=== PATIENT | female | born 1935 | race Caucasian/White ===

== ENCOUNTER 2023-03-21 13:03 | Inpatient (IN) ==
--- OUTSIDE RECORDS SUMMARY | 2023-03-21 13:23 | External Medical Summary ---
Author Name Unknown Address Unknown Organization [id number][facility] [address] [place] [id number] Laboratory Report Ordering Provider Test Date Status RUBIA CRISOSTOMO 03/13/2023 07:39:00 Final Standing order for pt/inr. < br/>Please draw pt/inr every 1 to 4 weeks as requested
Results to [facility]

Warfarin Therapy
INR: 2.0-3.0 conventional anticoagulation
INR: 2.5-3.5 high intensity anticoagulation Observation Date Value Abnormality Reference (Units ) Status PT 03/13/2023 07:39:00 29.6 Above high normal 11 .6-15.2 (seconds) Final INR 03/13/2023 07:39:00 2.8 Above high normal 0. 8-1.2 Final Performing Location [facility] [address] [place] [id number]
--- OUTSIDE RECORDS SUMMARY | 2023-03-21 13:23 | External Medical Summary | Summary of Care ---
Author Name Unknown Organization [facility] Address [address] [facility] [place] [address] Phone [phone] Care Team Providers Care Plisse Machine Operator Helper Name Role Phone Edwin Otto MD Primary Care Provider [phone] Reason for Visit * Reason Comments Dosage Adjustment Via Phone (anticoag Cl inic) Encounter Details Date Type Department Care Team (Latest Contact Info) Description 03/16/2023 6:00 AM [facility] Anticoagulation Pharmacy Call Center [phone] [place] [address] [facility] [address] [facility] [place] [address] History of pulmonary embolus (PE)* Allergies No known active allergiesdocumented as of this encounter (statuses as of 03/16/2023) Medications Medication Sig Dispensed Refills Start Date End Date Status Warfarin Sodium 5 MG Oral Tablet (Martoven)Indications :Deep vein thrombosis (DVT) of lower extremity, unspecified chronicity, unspecified laterality, unspecified vein (HCC),Anticoagulation management encounter,Other pulmonary embolism without acute cor pulmonale, unspecified chronicity (HCC) take half to one tablet by mouth daily as directed by the coumadin clinic 90 Tablet 3 03/31/2022 Active Vitamin D (Cholecalciferol) 25 MCG (1000 UT) Oral TabletIndications:Vit guerin D deficiency 1 daily 100 Tablet 3 07/25/2022 Active Citalopram Hydrobromide 20 MG Oral Tablet (CeleXA)Indications:D epression, unspecified depression type TAKE 1 TABLET BY MOUTH ONCE DAILY 90 Tablet 3 10/02/2022 Active documented as of this encounter (statuses as of 03/16/2023) Active Problems Problem Noted Date Diagnosed Date Other pulmonary embolism without acute cor pulmo nale 07/24/2021 Statin intolerance 03/22/2019 History of pulmonary embolus (PE) 09/01/2018 Kidney disease, chronic, stage III (GFR 30-59 ml /min) 07/28/2017 Overview: Per CKD protocol #1 Vitamin D deficiency 07/10/2017 Age-related osteoporosis wit hout current pathological fracture 09/12/2016 Chronic anticoagulation 03/14/2016 Dyslipidemia, goal LDL below 100 02/14/[address] 03/29/2012 Aortic insufficiency 02/20/2011 Anemia 02/17/2011 Undiagnosed cardiac murmurs 02/17/2011 Overview: 2/6 ANGELINA loudest at aortic area. JOINT PAIN-SHLDER _ L 08/16/2008 ADVANCE DIRECTIVE INFORMATION 11/27/2004 Overview: ,No, Advance Directive brochure offered , patient declined. 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 Right heart strain/distension on CT. Transferred from [facility]. Post knee replacement surgery. Dyslipidemia, goal to be determined 02/13/2009 02/14/2013 Overview: Per Lipid Taxonomy. Osteoporosis 01/13/2005 09/12/2016 Actinic keratosis 02/23/2002 07/10/2017 SUPERFIC PHLEBITIS-LEG 12/19/199707/10 Chest pain 07/10/2017 PURE HYPERCHOLESTEROLEM 12/0 10/2008 Overview: Per Lipid Taxonomy. Back disorder 07/10/2017 documented as of this encounter (statuses as of 03/16/2023) Immunizations Name Administration Dates Next Due COVID-19 mRNA, LNP-s, No Pre serve, 2-Dose Series (Pfizer) 06/27/2020,06/06/2020 Pneumococcal Conjugate Vacc, 13 Valent (Prevnar) 09/12/2016 Seasonal Influenza, PF, 6 M & above, IM , (FluLaval or Fluzone) 12/02/2019,12/23/2018,12/14/2017,2016 Seasonal Influenza, Quadriva lent Hd (Fluzone Hd) 01/24/2022,11/28/2020 Seasonal Influenza, Quadriva lent, No Preserve, IM 01/02/2016 Seasonal Influenza, Split, I IV3, With Preserve, Inj 11/14/2014,12/27/2013,12/02/2012,2011,12/19/2010,11/30/2009,11/30/2008,1 ,12/14/2006,12/17/2005 TDAP (age 10 and older)(Boostrix) 10/31/2014 Varicella Zoster Vaccine (Adult) 01/17/2014 documented as of this encounter Social History Tobacco Use Types Packs/Day Years Used Date Smoking Tobacco: Never Smokeless Tobacco: Never Alcohol Use Standard Drinks/Week Comments No 0 (1 standard drink = 0.6 oz pur e alcohol) PHQ-2 Answer Date Recorded PHQ Adult Total Score 0 03/28/2021 Hunger Vital Sign Answer Date Recorded Worried About Running Out of Food in the Last Ye ar Never true 09/01/2018 Ran Out of Food in the Last Year Never true 09/01/2018 Sex and Gender Information Value Date Recorded Sex Assigned at Female 09/01/2018 2:21 PM EDT Gender Identity Female 09/01/2018 2:21 PM EDT Sexual Orientation Not on file Job Start Date Occupation Industry Not on file Not on file Not on file documented as of this encounter Progress Notes * Telma Alfred, [facility] - 03/16/2023 3:26 PM EST Tracker francia Alfred Rp, Pharm.D. Clinical Pharmacist [facility] [phone] 03/16/2023,3:26 PM * Akhil Gamboa CPhT - 03/16/2023 11:57 AM EST Contacts Type Contact Phone/Fax 03/16/2023 11:50 AM EST Phone (Outgoing) Mai Dixon (Self) [phone] (H) Spoke to Patient Subjective Patient Findings Positives: Change in medications (has been taking 5mg every Mon, Fri; 2.5mg all other days) Negatives: Signs/symptoms of thrombosis, Signs/symptoms of bleeding, Change in health, Change in alcohol use, Change in activity, Upcoming invasive procedure, Missed doses, Extra doses, Change in diet/appetite, Bruising Comments: Advised to continue 5mg every Mon, Fri and 2.5mg all other days since INR was in range. Advised patient to contact Anticoagulation Clinic if any unusual bruising or bleeding, recent illness, changes in medication, or questions/concerns. PT/INR results, Coumadin dose instructions, and next PT/INR date communicated as noted by Pharmacist: SEE ABOVE COMMENT Akhil Gamboa CPhT 03/16/2023, 11:57 AM * Telma Alfred RP - 03/16/2023 9:44 AM EST Coumadin Clinic (region specific) Objective Current Warfarin Dose As of 03/16/2023 Warfarin maintenance plan: 5 mg (5 mg x 1) every Fri; 2.5 mg (5 mg x 0.5) all other days INR Result As of 03/16/2023 INR goal: 2.0-3.0 INR used for dosin.8 (03/13/2023) Assessment & Plan Warfarin Plan As of 03/16/2023 Full warfarin instructions: 5 mg every Fri; 2.5 mg all other days No change documented: Telma Alfred RPh Next INR check: 03/27/2023 Repeat PT/INR in 2 week(s) Weekly dose: not changed Additional Dosing Information: Description [facility] Tech to contact patient with dose instructions as noted. Telma Alfred RPh 03/16/2023, 9:48 AM documented in this encounter Plan of Treatment Upcoming Encounters Date Type Department Care Team (Late st Contact Info) Description 03/27/2023 8:30 AM EST Laboratory Lab Mobile Phlebotomy [facility] [address] [place] [address] [facility], [facility] Mobile Home Draw [address] [place] [address] 03/30/2023 6:00 AM EST Anticoagulation Pharmacy Call Center [address] [place] [address] [facility] [address] [place] [address] Health Maintenance Due Date Last Done Comments PAP SMEAR-EVERY 3 YRS,AGES 18-100 09/21/2013 09/21/2010 (Done elsewhere), 09/20/2008 (Done elsewhere), 12/17/1998 Zoster Vaccines (2 of 3) 03/14/2014 01/17/2014 DXA Scan 08/15/2018 08/15/2016, 06/07, 02/08/2007, Additional history exists *BISPHONATE OR OTHER ACCEPTABLE MEDICATION NEEDED FOR OSTEOPOROSIS (REFER TO SMARTSET #1146) 03/25/2019 Albumin/Creatinine Ratio 10/10/2020 10/11/2019 CKD PHOS USE SMARTSET 04185 10/10/2020 08/0 06/2019, 09/01/2018, 02/18/2011, Additional history exists Depression Screening 03/28/2022 03/28/2021 COVID-19 Vaccine ( season) 2022 06/27/2020, 06/06/2020 Influenza Vaccine (FLU shot) (#1) 2022 01/24/2022, 11/28/2020, 12/02/2019, Additional history exists CKD HGB USE SMARTSET 21893 01/24/202301/24, 01/24/2022, 01/23/2021, Additional history exists DTaP,Tdap,and Td Vaccines (2 - Td or Tdap) 10/31/2024 10/31/2014, 04/03/1994 Pneumococcal Vaccine: 65+ Years Completed 09/12/2016, 05/23/2002 VITAMIN D LEVEL ONCE IN A LIFETIME-USE SMARTSET# 48897 Completed 07/25/2022, 01/24/2022, 01/23/2021, Additional history exists GARDASIL-HPV IMMUNIZATION SERIES Aged Out No longer eligible based on patient's age to complete this topic Hepatitis B Aged Out No longer eligi ble based on patient's age to complete this topic MENINGOCOCCAL (MENACTRA/MENVEO) Aged Out No longer eligible based on patient's age to complete this topic documented as of this encounter Medical Devices Implanted Type Area Fire Information Officer Device Identifier Shelf Expiration Date Model / Serial / Lot Filter Navalign Femoral Tulip - [id number] Implanted:Qty: 1 on 02/17/2011 at OR [facility] N/A: Vena Cava COOK : [employer] 12/06/2013 [id number] / / [id number] documented as of this encounter Visit Diagnoses Diagnosis History of pulmonary embolus (PE)- Primary Personal history of pulmonary embolism documented in this encounter Advance Directives Latest Code Status on File Code Status Date Activated Date Inactivated Comments Full Code 02/17/2011 1:57 PM 02/19/2011 7:26 PM Thi s order reflects the patients wishes and were consensually agreed upon. Question Answer Comments Discussion of Advance Directives occurred with: Patient Does the patient have a Living Will? No Does the patient have Health Care Power of Chocolatier? No Code Status History Code Status Date Activated Date Inactivated Comments Full Code 02/17/2011 1:54 PM 02/17/2011 1:57 PM Thi s order reflects the patients wishes and were consensually agreed upon. Question Answer Comments Discussion of Advance Directives occurred with: Not Discussed Care Teams Plisse Machine Operator Helper Relationship Specialty Start Date End Date Edwin Otto MD [address] [place] [address] PCP - General 05/20/02 documented as of this encounter
--- OUTSIDE RECORDS SUMMARY | 2023-03-21 13:23 | External Medical Summary | Summary of Care ---
Author Name Unknown Organization [facility] Address [address] [place] [address] Phone [phone] Care Team Providers Care Raw Stock Machine Feeder Name Role Phone Edwin Otto MD Primary Care Provider [phone] Reason for Visit * Reason Onset Date Comments Family Concerns 03/18/2023 Encounter Details Date Type Department Care Team (Late st Contact Info) Description 03/18/2023 Impregnating Machine Operator Telephone Care Coordination and Integration [address], [place] [id number] Deysi Nur RN [address], [place] [phone] Family Concerns Allergies No known active allergiesdocumented as of this encounter (statuses as of 03/18/2023) Medications Medication Sig Dispensed Refills Start Date End Date Status Warfarin Sodium 5 MG Oral Tablet (Jantoven)Indication s:Deep vein thrombosis (DVT) of lower extremity, unspecified chronicity, unspecified laterality, unspecified vein (HCC),Anticoagulatio n management encounter,Other pulmonary embolism without acute cor pulmonale, unspecified chronicity (HCC) take half to one tablet by mouth daily as directed by the coumadin clinic 90 Tablet 3 03/31/2022 Active Vitamin D (Cholecalciferol) 25 MCG (1000 UT) Oral TabletIndications:Vi tamin D deficiency 1 daily 100 Tablet 3 07/25/2022 Active Citalopram Hydrobromide 20 MG Oral Tablet (CeleXA)Indications: Depression, unspecified depression type TAKE 1 TABLET BY MOUTH ONCE DAILY 90 Tablet 3 10/02/2022 Active Cephalexin 500 MG Oral CapsuleIndications:S uspected UTI Take 1 Capsule by mouth in the morning and 1 Capsule before bedtime. Do all this for 7 days. 14 Capsule 0 03/17/2023 03/24/2023 Active documented as of this encounter (statuses as of 03/18/2023) Active Problems Problem Noted Date Diagnosed Date Other pulmonary embolism without acute cor pulmo nale 07/24/2021 Statin intolerance 03/22/2019 History of pulmonary embolus (PE) 09/01/2018 Kidney disease, chronic, stage III (GFR 30-59 ml /min) 07/28/2017 Overview: Per CKD protocol #1 Vitamin D deficiency 07/10/2017 Age-related osteoporosis wit hout current pathological fracture 09/12/2016 Chronic anticoagulation 03/14/2016 Dyslipidemia, goal LDL below 100 02/14/[address] [place] [address] 03/29/2012 Aortic insufficiency 02/20/2011 Anemia 02/17/2011 Undiagnosed cardiac murmurs 02/17/2011 Overview: 2/6 ANGELINA loudest at aortic area. JOINT PAIN-SHLDER _ L 08/16/2008 ADVANCE DIRECTIVE INFORMATION 11/27/2004 Overview: ,No, Advance Directive brochure offered , patient declined. 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 Right heart strain/distension on CT. Transferred from [facility]. Post knee replacement surgery. Dyslipidemia, goal to be determined 02/13/2009 02/14/2013 Overview: Per Lipid Taxonomy. Osteoporosis 01/13/2005 09/12/2016 Actinic keratosis 02/23/2002 07/10/2017 SUPERFIC PHLEBITIS-LEG 12/19/199707/10 Chest pain 07/10/2017 PURE HYPERCHOLESTEROLEM /10/2008 Overview: Per Lipid Taxonomy. Back disorder 07/10/2017 documented as of this encounter (statuses as of 03/18/2023) Immunizations Name Administration Dates Next Due COVID-19 [...] on file documented as of this encounter Miscellaneous Notes * Telephone Encounter - Edwin Otto MD - 03/18/2023 1:56 PM EST Mai's just a few weeks ago. Likely her son you talked with as he lives in same home. I am fine with Selina Amado doing visit. * Telephone Encounter - Deysi Nur RN - 03/18/2023 10:[address] Otto, I got a call from Mai's , he states he needs some help with bathing & dressing for her, says he is having a hard time managing, has no family nearby to help I noticed that she has not been seen recently, I guess she has a hard time getting out, wondering if you would like SER[place] Sh[place]la to do a telemed visit with the patient & ? Unless there has been a change in condition requiring wound care, PT/OT, monitoring of vital signs (patient needs to have a skilled need), home health would not be covered. I discussed with her that [facility] has a waitlist, other option would be waiver, patient would need to apply for MA first, will take at 3 months before a determination will be made. I gave the the number for [facility], explaining that these services would be private pay. Let me know if you would like me to arrange a tele visit with Selina Amado (will need face to face if home health is ordered) Thanks Deysi Nur RN, BSN, [facility] Registered Nurse Impregnating Machine OperatorSide Splitter[address] [phone] documented in this encounter Plan of Treatment Upcoming Encounters Date Type Department Care Team (Late st Contact Info) Description 03/27/2023 8:30 AM EST Laboratory Lab Mobile Phlebotomy [facility] [address] [place] [address] Gm, [facility] Mobile Home Draw [address] [place] [address] 03/30/2023 6:00 AM EST Anticoagulation Pharmacy Call Center [address] [facility] [place] [address] [facility] [address] [facility] [place] [address] Health Maintenance Due Date Last Done Comments PAP SMEAR-EVERY 3 YRS,AGES 18-100 09/21/2013 09/21/2010 (Done elsewhere), 09/20/2008 (Done elsewhere), 12/17/1998 Zoster Vaccines (2 of 3) 03/14/2014 01/17/2014 DXA Scan 08/15/2018 08/15/2016, 06/07, 02/08/2007, Additional history exists *BISPHONATE OR OTHER ACCEPTABLE MEDICATION NEEDED FOR OSTEOPOROSIS (REFER TO SMARTSET #1146) 03/25/2019 Albumin/Creatinine Ratio 10/10/2020 10/11/2019 CKD PHOS USE SMARTSET 57794 10/10/202006/2019, 09/01/2018, 02/18/2011, Additional history exists Depression Screening 03/28/2022 03/28/2021 COVID-19 Vaccine ( season) 2022 06/27/2020, 06/06/2020 Influenza Vaccine (FLU shot) (#1) 2022 01/24/2022, 11/28/2020, 12/02/2019, Additional history exists CKD HGB USE SMARTSET 85643 01/24/202301/24, 01/24/2022, 01/23/2021, Additional history exists DTaP,Tdap,and Td Vaccines (2 - Td or Tdap) 10/31/2024 10/31/2014, 04/03/1994 Pneumococcal Vaccine: 65+ Years Completed 09/12/2016, 05/23/2002 VITAMIN D LEVEL ONCE IN A LIFETIME-USE SMARTSET# 10828 Completed 07/25/2022, 01/24/2022, 01/23/2021, Additional history exists [...] this encounter Medical Devices Implanted Type Area Computer Networker Device Identifier Shelf Expiration Date Model / Serial / Lot Filter Navalign Femoral Tulip - [id number] Implanted:[place] 1 [place]17[place] [facility] Vena Cava COOK : [employer] 12/06/2013 [id number] / / [id number] documented as of this encounter Advance Directives Latest Code Status on File Code Status Date Activated Date Inactivated Comments Full Code 02/17/2011 1:57 PM 02/19/2011 7:26 PM Thi s order reflects the patients wishes and were consensually agreed upon. Question Answer Comments Discussion of Advance Directives occurred with: Patient Does the patient have a Living Will? No Does the patient have Health Care Power of Medical Assisting Instructor? No Code Status History Code Status Date Activated Date Inactivated Comments Full Code 02/17/2011 1:54 PM 02/17/2011 1:57 PM Thi s order reflects the patients wishes and were consensually agreed upon. Question Answer Comments Discussion of Advance Directives occurred with: Not Discussed Care Teams Raw Stock Machine Feeder Relationship Specialty Start Date End Date Edwin Otto MD [address] [place] [address] PCP - General 05/20/02 documented as of this encounter
--- OUTSIDE RECORDS SUMMARY | 2023-03-21 13:24 | External Medical Summary | Summary of Care ---
Author Name Unknown Organization [facility] Address [address] [facility] [place] [address] Phone [phone] Care Team Providers Care Pet Trainer Name Role Phone Edwin Otto MD Primary Care Provider [phone] Reason for Visit * Reason Comments Dosage Adjustment Via Phone (anticoag Cl inic) Encounter Details Date Type Department Care Team (Latest Contact Info) Description 03/05/2023 6:[address] [facility] Anticoagulation Pharmacy Call Center [address] [place] [address] [facility] [address] [place] [address] History of pulmonary embolus (PE)* Allergies No known active allergiesdocumented as of this encounter (statuses as of 03/05/2023) Medications Medication Sig Dispensed Refills Start Date [...] as of this encounter (statuses as of 03/05/2023) Active Problems Problem Noted Date Diagnosed Date [...] as of this encounter (statuses as of 03/05/2023) Resolved Problems Problem Noted Date Diagnosed Date Resolved Date Major depressive disorder, r ecurrent episode, moderate 10/31/2014 05/04/2015 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 Right heart strain/distension on CT. Transferred from [facility]. Post knee replacement surgery. Dyslipidemia, goal to be determined 02/13/2009 02/14/2013 Overview: Per Lipid Taxonomy. Osteoporosis 01/13/2005 09/12/2016 Actinic keratosis 02/23/2002 07/10/2017 SUPERFIC PHLEBITIS-LEG 12/19/199707/10 Chest pain 07/10/2017 PURE HYPERCHOLESTEROLEM 12/0 10/2008 Overview: Per Lipid Taxonomy. Back disorder 07/10/2017 documented as of this encounter (statuses as of 03/05/2023) Immunizations Name Administration Dates Next Due COVID-19 [...] this encounter Progress Notes * Telma Alfred, [facility] - 03/05/2023 3:27 PM EST Noted Telma Alfred Rph, Pharm.D. Clinical Pharmacist [facility] ([facility]) (formerly Telepharmacy) [phone] 03/05/2023,3:27 PM * Cecil Gallardo PHARM Tech - 03/05/2023 10:26 AM EST Contacts Type Contact Phone/Fax 03/05/2023 10:22 AM EST Phone (Outgoing) Mai Dixon (Self) [phone] (H) Subjective Patient Findings Positives: Change in medications (Pt stated she is taking the fast acting Tylenol 500 mg in morningand evening now due to arthritis and pain issues.) Negatives: Signs/symptoms of thrombosis, Signs/symptoms of bleeding, Change in health, Change in alcohol use, Change in activity, Upcoming invasive procedure, Missed doses, Extra doses, Change in diet/appetite, Bruising Advised patient to contact Anticoagulation Clinic if any unusual bruising or bleeding, recent illness, changes in medication, or questions/concerns. PT/INR results, Coumadin dose instructions, and next PT/INR date communicated as noted by Pharmacist: Yes ROLANDO Carr 03/05/2023, 10:26 AM * Telma Alfred RPh - 03/05/2023 8:27 AM EST Images from the original note were not included. Coumadin Clinic (region specific) Objective Current Warfarin Dose As of 03/05/2023 Warfarin maintenance plan: 5 mg (5 mg x 1) every Fri; 2.5 mg (5 mg x 0.5) all other days INR Result As of 03/05/2023 INR goal: 2.0-3.0 INR used for dosin.3 (03/04/2023) Assessment & Plan Warfarin Plan As of 03/05/2023 Full warfarin instructions: 12/28: Hold; Otherwise 5 mg every Fri; 2.5 mg all other days Next INR check: 03/13/2023 Repeat PT/INR in 1.5 week(s) to see full week of dosing. Remind pt call will be 03/16 Weekly dose: not changed Additional Dosing Information: Description [facility] Tech to contact patient with dose instructions as noted. Telma Alfred RPh 03/05/2023, 8:28 AM documented in this encounter Plan of Treatment Upcoming Encounters Date Type Department Care Team (Late st Contact Info) Description 03/13/2023 8:40 AM EST Laboratory Lab [place]bot[place] [facility] [address] [place], [place] [id number] [facility] [place] [facility] Mobile Home Draw [address] [place], [place] [phone] Health Maintenance Due Date Last Done Comments PAP SMEAR-EVERY 3 YRS,AGES 18-100 09/21/2013 09/21/2010 (Done elsewhere), 09/20/2008 (Done elsewhere), 12/17/1998 Zoster Vaccines (2 of 3) 03/14/2014 01/17/2014 DXA Scan 08/15/2018 08/15/2016, 06/07, 02/08/2007, Additional history exists *BISPHONATE OR OTHER ACCEPTABLE MEDICATION NEEDED FOR OSTEOPOROSIS (REFER TO SMARTSET #1146) 03/25/2019 Albumin/Creatinine Ratio 10/10/2020 10/11/2019 CKD PHOS USE SMARTSET 04410 10/10/2020 08/0 06/2019, 09/01/2018, 02/18/2011, Additional history exists Depression Screening 03/28/2022 03/28/2021 COVID-19 Vaccine ( season) 2022 06/27/2020, 06/06/2020 Influenza Vaccine (FLU shot) (#1) 2022 01/24/2022, 11/28/2020, 12/02/2019, Additional history exists CKD HGB USE SMARTSET 03802 01/24/202301/24, 01/24/2022, 01/23/2021, Additional history exists DTaP,Tdap,and Td Vaccines (2 - Td or Tdap) 10/31/2024 10/31/2014, 04/03/1994 Pneumococcal Vaccine: 65+ Years Completed 09/12/2016, 05/23/2002 VITAMIN D LEVEL ONCE IN A LIFETIME-USE SMARTSET# 68425 Completed 07/25/2022, 01/24/2022, 01/23/2021, Additional history exists [...] this encounter Medical Devices Implanted Type Area Etcher Photoengraving Device Identifier Shelf Expiration Date Model / Serial / Lot Filter Navalign Femoral Tulip - [id number] Implanted:Q[place]: 1 on [place]17[place] [facility] [place] Vena Cava COOK : [employer] 12/06/2013 [id number] / / [id number] documented as of this encounter Visit Diagnoses [...] the patient have Health Care Power of Occupational Medicine Officer? No Code Status History Code Status Date Activated Date Inactivated Comments Full Code 02/17/2011 1:54 PM 02/17/2011 1:57 PM Thi s order reflects the patients wishes and were consensually agreed upon. Question Answer Comments Discussion of Advance Directives occurred with: Not Discussed Care Teams Pet Trainer Relationship Specialty Start Date End Date Edwin Otto MD [address] [place] [address] PCP - General 05/20/02 documented as of this encounter
--- OUTSIDE RECORDS SUMMARY | 2023-03-21 13:24 | External Medical Summary | Summary of Care ---
Author Name Unknown Organization [facility] Address [address] [facility] [place] [address] Phone [phone] Care Team Providers Care Automatic Machine Attendant Name Role Phone Edwin Otto MD Primary Care Provider [phone] Reason for Visit * Reason Comments Dosage Adjustment Via Phone (anticoag Cl inic) Encounter Details Date Type Department Care Team (Latest Contact Info) Description 02/26/2023 6:00 AM [facility] Anticoagulation Pharmacy Call Center [address] [place] [address] [facility] [address] 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 Right heart strain/distension on CT. Transferred [facility]. Post knee replacement surgery. Dyslipidemia, goal to be determined 02/13/2009 02/14/2013 Overview: Per Lipid Taxonomy. Osteoporosis 01/13/2005 09/12/2016 Actinic keratosis 02/23/2002 07/10/2017 SUPERFIC PHLEBITIS-LEG 12/19/199707/10 Chest pain 07/10/2017 PURE HYPERCHOLESTEROLEM 12/0 10/2008 Overview: Per Lipid Taxonomy. Back disorder 07/10/2017 documented as of this encounter (statuses as of 02/26/2023) Immunizations Name Administration Dates Next Due COVID-19 [...] of this encounter Progress Notes * Telma Dewitt [facility] - 02/26/2023 1:57 PM EST Contacts Type Contact Phone/Fax 02/26/2023 01:55 PM EST Phone (Outgoing) Mai Dixon (Self) [phone] (H) Subjective Patient Findings Negatives: Signs/symptoms of bleeding, Change in health, Change in activity, Upcoming invasive procedure, Missed doses, Extra doses, Change in medications, Change in diet/appetite, Bruising Advised patient to contact Anticoagulation Clinic if any unusual bruising or bleeding, recent illness, changes in medication, or questions/concerns. PT/INR results, Coumadin dose instructions, and next PT/INR date communicated as noted by Pharmacist: Yes Telma Dewitt CPhT 02/26/2023, 1:57 PM * Telma Alfred RPh - 02/26/2023 9:58 AM EST Coumadin Clinic (region specific) Objective Current Warfarin Dose As of 02/26/2023 Warfarin maintenance plan: 5 mg (5 mg x 1) every Fri; 2.5 mg (5 mg x 0.5) all other days INR Result As of 02/26/2023 INR goal: 2.0-3.0 INR used for dosin.7 (02/25/2023) Assessment & Plan Warfarin Plan As of 02/26/2023 Full warfarin instructions: 02/26: 5 mg; Otherwise 5 mg every Fri; 2.5 mg all other days Next INR check: 03/04/2023 Repeat PT/INR in 1 week(s) Weekly dose: not changed Additional Dosing Information: Description [facility] Tech to contact patient with dose instructions as noted. Telma Alfred RPh 02/26/2023, 9:58 AM documented in this encounter Plan of Treatment Upcoming Encounters Date Type Department Care Team ([facility] Contact Info) Description 03/04/2023 11:10 AM EST Laboratory Lab Mobile Phlebotomy [address] [phone] [facility] Mobile Home Draw [address] [place] [address] 03/05/2023 6:00 AM [facility] Pharmacy Call Center [address] [facility] [place] [address] [facility] [address] [facility] [place] [address] Health Maintenance Due Date Last Done Comments PAP SMEAR-EVERY 3 YRS,AGES 18-100 09/21/2013 09/21/2010 (Done elsewhere), 09/20/2008 (Done elsewhere), 12/17/1998 Zoster Vaccines (2 of 3) 03/14/2014 01/17/2014 DXA Scan 08/15/2018 08/15/2016, 06/07, 02/08/2007, Additional history exists *BISPHONATE OR OTHER ACCEPTABLE MEDICATION NEEDED FOR OSTEOPOROSIS (REFER TO SMARTSET #1146) 03/25/2019 Albumin/Creatinine Ratio 10/10/2020 10/11/2019 CKD PHOS USE SMARTSET 18631 10/10/2020 0806/2019, 09/01/2018, 02/18/2011, Additional history exists Depression Screening 03/28/2022 03/28/2021 COVID-19 Vaccine ( season) 2022 06/27/2020, 06/06/2020 Influenza Vaccine (FLU shot) (#1) 2022 01/24/2022, 11/28/2020, 12/02/2019, Additional history exists CKD HGB USE SMARTSET 29575 01/24/202301/24, 01/24/2022, 01/23/2021, Additional history exists DTaP,Tdap,and Td Vaccines (2 - Td or Tdap) 10/31/2024 10/31/2014, 04/03/1994 Pneumococcal Vaccine: 65+ Years Completed 09/12/2016, 05/23/2002 VITAMIN D LEVEL ONCE IN A LIFETIME-USE SMARTSET# 49591 Completed 07/25/2022, 01/24/2022, 01/23/2021, Additional history exists [...] this encounter Medical Devices Implanted Type Area Foreign Banknote Teller Device Identifier Shelf Expiration Date Model / Serial / Lot Filter Navalign Femoral Tulip - [id number] Implanted:Q[place]: 1 on [place]17[place] [facility] Vena Cava COOK : [employer] 12/06/2013 [id number] / / [id number] documented as of this encounter Visit Diagnoses [...] the patient have Health Care Power of Media Production Operator? No Code Status History Code Status Date Activated Date Inactivated Comments Full Code 02/17/2011 1:54 PM 02/17/2011 1:57 PM Thi s order reflects the patients wishes and were consensually agreed upon. Question Answer Comments Discussion of Advance Directives occurred with: Not Discussed Care Teams Automatic Machine Attendant Relationship Specialty Start Date End Date Edwin Otto MD [address] [place] [address] PCP - General 05/20/02 documented as of this encounter
--- OUTSIDE RECORDS SUMMARY | 2023-03-21 13:24 | External Medical Summary | Summary of Care ---
Author Name Unknown Organization [facility] Address [address] [facility] [place] [address] Phone [phone] Care Team Providers Care Turn Out Worker Name Role Phone Edwin Otto MD Primary Care Provider [phone] Reason for Visit * Reason Comments Dosage Adjustment Via Phone (anticoag Cl inic) Encounter Details Date Type Department Care Team (Latest Contact Info) Description 02/18/2023 6:00 PM [facility] Anticoagulation Pharmacy Call Center [address] [place] [address] [facility] [address] [place] [address] History of pulmonary embolus (PE)* Allergies No known active allergiesdocumented as of this encounter (statuses as of 02/18/2023) Medications Medication Sig Dispensed Refills Start Date [...] as of this encounter (statuses as of 02/18/2023) Active Problems Problem Noted Date Diagnosed Date [...] as of this encounter (statuses as of 02/18/2023) Resolved Problems Problem Noted Date Diagnosed Date Resolved Date Major depressive disorder, r ecurrent episode, moderate 10/31/2014 05/04/2015 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 Right heart strain/distension on CT. Transferred from [facility]. Post knee replacement surgery. Dyslipidemia, goal to be determined 02/13/2009 02/14/2013 Overview: Per Lipid Taxonomy. Osteoporosis 01/13/2005 09/12/2016 Actinic keratosis 02/23/2002 07/10/2017 SUPERFIC PHLEBITIS-LEG 12/19/199707/10 Chest pain 07/10/2017 PURE HYPERCHOLESTEROLEM 12/0 10/2008 Overview: Per Lipid Taxonomy. Back disorder 07/10/2017 documented as of this encounter (statuses as of 02/18/2023) Immunizations Name Administration Dates Next Due COVID-19 [...] this encounter Progress Notes * Telma Alfred, [facility] - 02/18/2023 2:26 PM EST Images from the original note were not included. Medication Therapy Disease Management - Anticoagulation Patient: Mai Dixon | : 1935 Subjective Contacts Type Contact Phone/Fax 02/18/2023 02:31 PM EST Phone (Outgoing) Mai Dixon (Self) [phone] (H) Spoke to Patient Patient-Reported Symptoms: Patient Findings Positives: Change in diet/appetite, Bruising Negatives: Signs/symptoms of thrombosis, Signs/symptoms of bleeding, Change in health, Change in alcohol use, Change in activity, Upcoming invasive procedure, Missed doses, Extra doses, Change in medications Comments: Notes she bruises easily but fades quickly. Lost her recently and not eating as much as normal. Objective Current Warfarin Dose As of 02/18/2023 Warfarin maintenance plan: 5 mg (5 mg x 1) every Mon, Fri; 2.5 mg (5 mg x 0.5) all other days INR Result As of 02/18/2023 INR goal: 2.0-3.0 INR used for dosin.3 (02/18/2023) Assessment & Plan Warfarin Plan As of 02/18/2023 Full warfarin instructions: 02/18: Hold; 02/19: Hold; 02/20: Hold; Otherwise 5 mg every Fri; 2.5 mgall other days Next INR check: 02/25/2023 Repeat PT/INR in 1 week(s) Weekly dose: not changed Additional Dosing Information: Description [facility] Telma Alfred RPh Clinical Pharmacist 02/18/2023, 2:26 PM documented in this encounter Plan of Treatment Upcoming Encounters Date Type Department Care Team (Late st Contact Info) Description 02/26/2023 6:00 AM EST Anticoagulation Pharmacy Call Center [address] [facility] [place] [address] [facility] [address] [facility] [place] [address] Health Maintenance Due Date Last Done Comments PAP SMEAR-EVERY 3 YRS,AGES 18-100 09/21/2013 09/21/2010 (Done elsewhere), 09/20/2008 (Done elsewhere), 12/17/1998 Zoster Vaccines (2 of 3) 03/14/2014 01/17/2014 DXA Scan 08/15/2018 08/15/2016, 06/07, 02/08/2007, Additional history exists *BISPHONATE OR OTHER ACCEPTABLE MEDICATION NEEDED FOR OSTEOPOROSIS (REFER TO SMARTSET #1146) 03/25/2019 Albumin/Creatinine Ratio 10/10/2020 10/11/2019 CKD PHOS USE SMARTSET 31927 10/10/2020 0806/2019, 09/01/2018, 02/18/2011, Additional history exists Depression Screening 03/28/2022 03/28/2021 COVID-19 Vaccine ( season) 2022 06/27/2020, 06/06/2020 Influenza Vaccine (FLU shot) (#1) 2022 01/24/2022, 11/28/2020, 12/02/2019, Additional history exists CKD HGB USE SMARTSET 05426 01/24/202301/24, 01/24/2022, 01/23/2021, Additional history exists DTaP,Tdap,and Td Vaccines (2 - Td or Tdap) 10/31/2024 10/31/2014, 04/03/1994 Pneumococcal Vaccine: 65+ Years Completed 09/12/2016, 05/23/2002 VITAMIN D LEVEL ONCE IN A LIFETIME-USE SMARTSET# 43670 Completed 07/25/2022, 01/24/2022, 01/23/2021, Additional history exists [...] this encounter Medical Devices Implanted Type Area Technology Officer Device Identifier Shelf Expiration Date Model / Serial / Lot Filter Navalign Femoral Tulip - [id number] Implanted:Qty: 1 on 02/17/2011 at [place] [facility] [place] N/A: Vena Cava COOK : [employer] 12/06/2013 [id number] / / [id number] documented as of this encounter Visit Diagnoses [...] the patient have Health Care Power of Prize Jacker? No Code Status History Code Status Date Activated Date Inactivated Comments Full Code 02/17/2011 1:54 PM 02/17/2011 1:57 PM Thi s order reflects the patients wishes and were consensually agreed upon. Question Answer Comments Discussion of Advance Directives occurred with: Not Discussed Care Teams Turn Out Worker Relationship Specialty Start Date End Date Edwin Otto MD [address] [place] [address] PCP - General 05/20/02 documented as of this encounter"
--- OUTSIDE RECORDS SUMMARY | 2023-03-21 13:24 | External Medical Summary | Summary of Care ---
Author Name Unknown Organization [facility] Address [address] [facility] [address] Phone [phone] Care Team Providers Care Broadcast Operations Manager Name Role Phone Edwin Otto MD Primary Care Provider [phone] Reason for Visit * Reason Onset Date Comments Protime Testing 09/24/2022 Encounter Details Date Type Department Care Team Description 09/24/2022 Telephone Pharmacy Call Center [address] [place] [address] [facility] [address] [place] [address] Protime Testing (/) Allergies No known active allergiesdocumented as of this encounter (statuses as of 09/24/2022) Medications Medication Sig Dispensed Refills Start Date End Date Status Citalopram Hydrobromide 20 MG Oral Tablet (CeleXA)Indications:D epression, unspecified depression type TAKE 1 TABLET BY MOUTH ONCE DAILY 90 Tablet 1 05/22/2021 Active Warfarin Sodium 5 MG Oral Tablet (Jantoven)Indications :Deep vein thrombosis (DVT) of lower extremity, unspecified chronicity, unspecified laterality, unspecified vein (HCC),Anticoagulation management encounter,Other pulmonary embolism without acute cor pulmonale, unspecified chronicity (HCC) take half to one tablet by mouth daily as directed by the coumadin clinic 90 Tablet 3 03/31/2022 Active Vitamin D (Cholecalciferol) 25 MCG (1000 UT) Oral TabletIndications:Vit guerin D deficiency 1 daily 100 Tablet 3 07/25/2022 Active documented as of this encounter (statuses as of 09/24/2022) Active Problems Problem Noted Date Other pulmonary embolism without acute c or pulmonale 07/24/2021 Statin intolerance 03/22/2019 History of pulmonary embolus (PE) 2018 Kidney disease, chronic, stage III (GFR 30-59 ml/min) 07/28/2017 Overview: Per CKD protocol #1 Vitamin D deficiency 07/10/2017 Age-related osteoporosis without current pathological fracture 09/12/2016 Chronic anticoagulation 03/14/2016 Dyslipidemia, goal LDL below 100 [address] [place] filter in place 03/29/2012 Aortic insufficiency 02/20/2011 Anemia 02/17/2011 Undiagnosed cardiac murmurs 02/17/2011 Overview: 2/6 ANGELINA loudest at aortic area. JOINT PAIN-SHLDER _ L 08/16/2008 ADVANCE DIRECTIVE INFORMATION 11/27/2004 Overview: ,No, Advance Directive brochure offered , patient declined. 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 Right heart strain/distension on CT. Transferred from [facility]. Post knee replacement surgery. Dyslipidemia, goal to be determined 02/13/2009 02/14/2013 Overview: Per Lipid Taxonomy. Osteoporosis 01/13/2005 09/12/2016 Actinic keratosis 02/23/2002 07/10/2017 SUPERFIC PHLEBITIS-LEG 12/19/1997 8 Chest pain 07/10/2017 PURE HYPERCHOLESTEROLEM 02/14/20 09 Overview: Per Lipid Taxonomy. Back disorder 07/10/2017 documented as of this encounter (statuses as of 09/24/2022) Immunizations Name Administration Dates Next Due COVID-19 mRNA, LNP-s, No Pre serve, 2-Dose Series (Pfizer) 06/27/2020,06/06/2020 Pneumococcal Conjugate Vacc, 13 Valent (Prevnar) 09/12/2016 Seasonal Influenza, Quadriva lent Hd (Fluzone Hd) 01/24/2022,11/28/2020 Seasonal Influenza, Quadriva lent, No Preserve, 6 Mons & Above, IM 12/02/2019,12/23/2018,12/14/2017,2016 Seasonal Influenza, Quadriva lent, No Preserve, IM [...] drink = 0.6 oz pur e alcohol) Food Insecurity Answer Date Recorded Within the past 12 months, y ou worried that your food would run out before you got money to buy more. Never true 09/01/2018 Within the past 12 months, t he food you bought just didn't last and you didn't have money to get more. Never true 09/01/2018 Sex Assigned at Date Recorded Female 09/01/2018 2:21 PM E DT Job Start Date Occupation Industry Not on file Not on file Not on file documented as of this encounter Miscellaneous Notes * Telephone Encounter - Telma Alfred, [facility] - 09/24/2022 12:43 PM EDT PT/INR order signed Telma Alfred Rph, Pharm.D. Clinical Pharmacist [facility] ([facility]) (formerly Telepharmacy) [phone] 09/24/2022,12:44 PM documented in this encounter Plan of Treatment Upcoming Encounters Date Type Specialty Care Team Description 09/25/2022 Anticoagulation Pharmacy [facility] [address] [facility] [place] [address] Scheduled Orders Name Type Priority Associated Diagnoses Orde r Schedule PT INR Lab Routine FDC current use of anticoagulant therapy Other, Please specify in Comments field for 26 Occurrences starting 09/24/2022 until 09/25/2023, 1 completed Health Maintenance Due Date Last Done Comments PAP SMEAR-EVERY 3 YRS,AGES 18-100 09/21/2013 09/21/2010 (Done elsewhere), 09/20/2008 (Done elsewhere), 12/17/1998 Zoster Vaccines (2 of 3) 03/14/2014 01/17/2014 DXA Scan 08/15/2018 08/15/2016, 06/07, 02/08/2007, Additional history exists *BISPHONATE OR OTHER ACCEPTABLE MEDICATION NEEDED FOR OSTEOPOROSIS (REFER TO SMARTSET #1146) 03/25/2019 COVID-19 Vaccine (3 - Pfizer series) 08/22/2020 06/27/2020, 06/06/2020 Albumin/Creatinine Ratio 10/10/2020 10/11/2019 CKD PHOS USE SMARTSET 99742 10/10/2020 08/0 06/2019, 09/01/2018, 02/18/2011, Additional history exists Depression Screening, Annual for Pts 12 and Over 03/28/2022 03/28/2021 Influenza Vaccine (FLU shot) (#1) 2022 01/24/2022, 11/28/2020, 12/02/2019, Additional history exists CKD HGB USE SMARTSET 13203 01/24/202301/24, 01/24/2022, 01/23/2021, Additional history exists DTaP,Tdap,and Td Vaccines (2 - Td or Tdap) 10/31/2024 10/31/2014, 04/03/1994 Pneumococcal Vaccine: 65+ Years Completed 09/12/2016, 05/23/2002 VITAMIN D LEVEL ONCE IN A LIFETIME-USE SMARTSET# [id number] Completed 07/25/2022, 01/24/2022, 01/23/2021, Additional history exists [...] this encounter Medical Devices Implanted Type Area Comber Fixer Device Identifier Shelf Expiration Date Model / Serial / Lot Filter Navalign Femoral Tulip - [id number] Implanted:Qty: 1 on 02/17/2011 at [place] [facility] [place]A: Vena Cava COOK : [employer] 12/06/2013 [id number] / / [id number] documented as of this encounter Results * (ABNORMAL) PT INR (09/24/2022 9:00 AM EDT) [facility] Prothrombin Time 25.2(H) 11.6 - 15.2 seconds 09/24/2022 1:01 PM EDT [facility] [place] [facility] INR 2.3(H) 0.8 - 1.2 09/24/2022 1:01 PM EDT [facility] [place] [facility]10 Blood Venous blood specimen / Unknown Venipuncture / Unknown 09/24/2022 9:00 AM EDT 09/24/2022 12:48 PM EDT Narrative [facility] [place] [address] - 09/24/2022 1:01 PM EDT Warfarin Therapy INR: 2.0-3.0 conventional anticoagulation INR: 2.5-3.5 high intensity anticoagulation Telma Alfred [facility] LAB BLOOD ORDERABLES [facility] [place] [address] [facility] [place] [address] documented in this encounter Visit Diagnoses Diagnosis technician terminal and repeater current use of anticoagulant therapy- Primary documented in this encounter Advance Directives Latest [...] the patient have Health Care Power of Wildlife Management Professor? No Code Status History Code Status Date Activated Date Inactivated Comments Full Code 02/17/2011 1:54 PM 02/17/2011 1:57 PM Thi s order reflects the patients wishes and were consensually agreed upon. Question Answer Comments Discussion of Advance Directives occurred with: Not Discussed Care Teams Broadcast Operations Manager Relationship Specialty Start Date End Date Edwin Otto MD [address] [place] [address] PCP - General 05/20/02 documented as of this encounter
--- OUTSIDE RECORDS SUMMARY | 2023-03-21 13:24 | External Medical Summary ---
Author Name Unknown Address Unknown Organization [id number]:[facility] [place] [address] [place] [id number] Laboratory Report Ordering Provider Test Date Status RUBIA CRISOSTOMO 12/17/2022 07:38:00 Final Standing order for pt/inr. < br/>Please draw pt/inr every 1 to 4 weeks as requested
Results to [facility]

Warfarin Therapy
INR: 2.0-3.0 conventional anticoagulation
INR: 2.5-3.5 high intensity anticoagulation Observation Date Value Abnormality Reference (Units ) Status PT 12/17/2022 07:38:00 28.4 Above high normal 11 .6-15.2 (seconds) Final INR 12/17/2022 07:38:00 2.6 Above high normal 0. 8-1.2 Final Performing Location LAB[facility]AT[facility] [place] [address] [place] [address]
--- OUTSIDE RECORDS SUMMARY | 2023-03-21 13:24 | External Medical Summary ---
Author Name Unknown Address Unknown Organization K0G:[facility] [address] [place] [address] Laboratory Report Ordering Provider Test Date Status RUBIA CRISOSTOMO 02/25/2023 08:24:00 Final Standing order for pt/inr. < br/>Please draw pt/inr every 1 to 4 weeks as requested
Results to [facility]

Warfarin Therapy
INR: 2.0-3.0 conventional anticoagulation
INR: 2.5-3.5 high intensity anticoagulation Observation Date Value Abnormality Reference (Units ) Status PT 02/25/2023 08:24:00 19.7 Above high normal 11 .6-15.2 (seconds) Final INR 02/25/2023 08:24:00 1.7 Above high normal 0. 8-1.2 Final Performing Location [facility] [address] [place] [address]
--- OUTSIDE RECORDS SUMMARY | 2023-03-21 13:24 | External Medical Summary | Summary of Care ---
Author Name Unknown Organization [facility] Address [address] [facility] [address] Phone [phone] Care Team Providers Care Breastfeeding Program Coordinator Name Role Phone Edwin Otto MD Primary Care Provider [phone] Reason for Visit * Reason Comments Dosage Adjustment Via Phone (anticoag Cl inic) Encounter Details Date Type Department Care Team Description 11/06/2022 Anticoagulation Pharmacy Call Center [address] [facility] [place] [address] [facility] [address] [facility] [place] [address] History of pulmonary embolus (PE)* Allergies No known active allergiesdocumented as of this encounter (statuses as of 11/06/2022) Medications Medication Sig Dispensed Refills Start Date End Date Status Warfarin Sodium 5 MG Oral Tablet ()Indications :Deep vein thrombosis (DVT) of lower extremity, [...] as of this encounter (statuses as of 11/06/2022) Active Problems Problem Noted Date Other pulmonary embolism without acute c or pulmonale 07/24/2021 Statin intolerance 03/22/2019 History of pulmonary embolus (PE) 2018 Kidney disease, chronic, stage III (GFR 30-59 ml/min) 07/28/2017 Overview: Per CKD protocol #1 Vitamin D deficiency 07/10/2017 Age-related osteoporosis without current pathological fracture 09/12/2016 Chronic anticoagulation 03/14/2016 Dyslipidemia, goal LDL below [address] 03/29/2012 Aortic insufficiency 02/20/2011 Anemia 02/17/2011 Undiagnosed cardiac murmurs 02/17/2011 Overview: 2/6 ANGELINA loudest at aortic area. JOINT PAIN-SHLDER _ L 08/16/2008 ADVANCE DIRECTIVE INFORMATION 11/27/2004 Overview: ,No, Advance Directive brochure offered , patient declined. GENERAL OSTEOARTHROSIS 05/23/2002 Reflux esophagitis Major depressive disorder, recurrent epi sode, moderate documented as of this encounter (statuses as of 11/06/2022) Resolved Problems Problem Noted Date Resolved Date Major depressive disorder, recurrent episode, mo derate 10/31/2014 05/04/2015 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 Right heart strain/distension on CT. Transferred from [facility]. Post knee replacement surgery. Dyslipidemia, goal to be determined 02/13/2009 02/14/2013 Overview: Per Lipid Taxonomy. Osteoporosis 01/13/2005 09/12/2016 Actinic keratosis 02/23/2002 07/10/2017 SUPERFIC PHLEBITIS-LEG 12/19/1997 8 Chest pain 07/10/2017 PURE HYPERCHOLESTEROLEM 02/14/20 09 Overview: Per Lipid Taxonomy. Back disorder 07/10/2017 documented as of this encounter (statuses as of 11/06/2022) Immunizations Name Administration Dates Next Due COVID-19 mRNA, LNP-s, No Pre serve, 2-Dose Series (Pfizer) 06/27/2020,06/06/2020 Pneumococcal Conjugate Vacc, 13 Valent (Prevnar) 09/12/2016 Seasonal Influenza, PF, 6 mo ns & Above, IM , (Flulaval) 12/02/2019,12/23/2018,12/14/2017,2016 Seasonal Influenza, Quadriva lent Hd (Fluzone [...] as of this encounter Progress Notes * Ingris Martinez, survey research analyst - 11/06/2022 12:03 PM EDT Contacts Type Contact Phone/Fax 11/06/2022 12:01 PM EDT Phone (Outgoing) Mai Dixon (Self) [phone] (H) Subjective Patient Findings Negatives: Signs/symptoms of thrombosis, Signs/symptoms of bleeding, [...] communicated as noted by Pharmacist: Yes ROLANDO MEDINA 11/06/2022, 12:03 PM * Telma Alfred RPh - 11/06/2022 8:52 AM EDT Coumadin Clinic (region specific) Objective Current Warfarin Dose As of 11/06/2022 Warfarin maintenance plan: 5 mg (5 mg x 1) every Mon, Fri; 2.5 mg (5 mg x 0.5) all other days INR Result As of 11/06/2022 INR goal: 2.0-3.0 INR used for dosin.7 (11/05/2022) Assessment & Plan Warfarin Plan As of 11/06/2022 Full warfarin instructions: 5 mg every Mon, Fri; 2.5 mg all other days No change documented: Telma Alfred RPh Next INR check: 12/17/2022 Repeat PT/INR in 6 week(s) Weekly dose: not changed Additional Dosing Information: Description [facility] Tech to contact patient with dose instructions as noted. Telma Alfred RPh 11/06/2022, 8:53 AM documented in this encounter Plan of Treatment Upcoming Encounters Date Type Specialty Care Team Description 12/17/2022 Laboratory Laboratory Processing [facility] [place] Draw [address] [place] [address] 12/18/2022 [facility] [address] [facility] [place] [address] Health Maintenance Due Date Last Done Comments [...] Ratio 10/10/2020 10/11/2019 CKD PHOS USE SMARTSET 03368 10/10/2020 08/0 06/2019, 09/01/2018, 02/18/2011, Additional history exists Depression Screening, Annual for Pts 12 and Over 03/28/2022 03/28/2021 Influenza Vaccine (FLU shot) (#1) 2022 01/24/2022, 11/28/2020, 12/02/2019, Additional history exists CKD HGB USE SMARTSET 73801 01/24/202301/24, 01/24/2022, 01/23/2021, Additional history exists DTaP,Tdap,and Td Vaccines (2 - Td or Tdap) 10/31/2024 10/31/2014, 04/03/1994 Pneumococcal Vaccine: 65+ Years Completed 09/12/2016, 05/23/2002 VITAMIN D LEVEL ONCE IN A LIFETIME-USE SMARTSET# 38935 Completed 07/25/2022, 01/24/2022, 01/23/2021, Additional history exists [...] this encounter Medical Devices Implanted Type Area Application Systems Administrator Device Identifier Shelf Expiration Date Model / Serial / Lot Filter Navalign Femoral Tulip - [id number] Implanted:Qty: 1 on 02/17/2011 at [place] [facility] [place] N/A: Vena Cava COOK : [employer] 12/06/2013 [id number] / / [id number] documented as of this encounter Visit Diagnoses [...] the patient have Health Care Power of Coping Machine Operator? No Code Status History Code Status Date Activated Date Inactivated Comments Full Code 02/17/2011 1:54 PM 02/17/2011 1:57 PM Thi s order reflects the patients wishes and were consensually agreed upon. Question Answer Comments Discussion of Advance Directives occurred with: Not Discussed Care Teams Breastfeeding Program Coordinator Relationship Specialty Start Date End Date Edwin Otto MD [address] [place] [address] PCP - General 05/20/02 documented as of this encounter
--- OUTSIDE RECORDS SUMMARY | 2023-03-21 13:24 | External Medical Summary ---
Author Name Unknown Address Unknown Organization K01:LABORATORY [facility] [place] - [address] [place] [address] Laboratory Report Ordering Provider Test Date Status RUBIA CRISOSTOMO 11/05/2022 07:41:00 Final Standing order for pt/inr. < br/>Please draw pt/inr every 1 to 4 weeks as requested
Results to [facility]

Warfarin Therapy
INR: 2.0-3.0 conventional anticoagulation
INR: 2.5-3.5 high intensity anticoagulation Observation Date Value Abnormality Reference (Units ) Status PT 11/05/2022 07:41:00 28.6 Above high normal 11 .6-15.2 (seconds) Final INR 11/05/2022 07:41:00 2.7 Above high normal 0. 8-1.2 Final Performing Location LABORATORY [facility] [place] - [address] [place] [id number]
--- OUTSIDE RECORDS SUMMARY | 2023-03-21 13:24 | External Medical Summary | Summary of Care ---
Author Name Unknown Organization [facility] Address [address] [facility] [address] Phone [phone] Care Team Providers Care Furnace Keeper Name Role Phone Edwin Otto MD Primary Care Provider [phone] Reason for Visit * Reason Comments Dosage Adjustment Via Phone (anticoag Cl inic) Encounter Details Date Type Department Care Team Description 12/18/2022 Anticoagulation Pharmacy Call Center [address] [facility] [place] [address] [facility] [address] [place] [address] History of pulmonary embolus (PE)* Allergies No known active allergiesdocumented as of this encounter (statuses as of 12/18/2022) Medications Medication Sig Dispensed Refills Start Date End Date Status Warfarin Sodium 5 MG Oral Tablet (Jantoven)Indications [...] as of this encounter (statuses as of 12/18/2022) Active Problems Problem Noted Date Other pulmonary embolism without acute c or pulmonale 07/24/2021 Statin intolerance 03/22/2019 History of pulmonary embolus (PE) 2018 Kidney disease, chronic, stage III (GFR 30-59 ml/min) 07/28/2017 Overview: Per CKD protocol #1 Vitamin D deficiency 07/10/2017 Age-related osteoporosis without current pathological fracture 09/12/2016 Chronic anticoagulation 03/14/2016 Dyslipidemia, goal LDL below [address] [place] [address] 03/29/2012 Aortic insufficiency 02/20/2011 Anemia 02/17/2011 Undiagnosed cardiac murmurs 02/17/2011 Overview: 2/6 ANGELINA loudest at aortic area. JOINT PAIN-SHLDER _ L 08/16/2008 ADVANCE DIRECTIVE INFORMATION 11/27/2004 Overview: ,No, Advance Directive brochure offered , patient declined. GENERAL OSTEOARTHROSIS 05/23/2002 Reflux esophagitis Major depressive disorder, recurrent epi sode, moderate documented as of this encounter (statuses as of 12/18/2022) Resolved Problems Problem Noted Date Resolved Date Major depressive disorder, recurrent episode, mo derate 10/31/2014 05/04/2015 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 Right heart strain/distension on CT. Transferred from [facility]. Post knee replacement surgery. Dyslipidemia, goal to be determined 02/13/2009 02/14/2013 Overview: Per Lipid Taxonomy. Osteoporosis 01/13/2005 09/12/2016 Actinic keratosis 02/23/2002 07/10/2017 SUPERFIC PHLEBITIS-LEG 12/19/1997 8 Chest pain 07/10/2017 PURE HYPERCHOLESTEROLEM 02/14/20 09 Overview: Per Lipid Taxonomy. Back disorder 07/10/2017 documented as of this encounter (statuses as of 12/18/2022) Immunizations Name Administration Dates Next Due COVID-19 mRNA, LNP-s, No Pre serve, 2-Dose Series (Pfizer) 06/27/2020,06/06/2020 Pneumococcal Conjugate Vacc, 13 Valent (Prevnar) 09/12/2016 SEASONAL INFLUENZA, PF, 6 M & Above, IM , (FLULAVAL or FLUZONE) 12/02/2019,12/23/2018,12/14/2017,2016 Seasonal Influenza, Quadriva lent Hd (Fluzone [...] of this encounter Progress Notes * Telma Dewitt, fur ironer - 12/18/2022 8:55 AM EDT Contacts Type Contact Phone/Fax 12/18/2022 08:54 AM EDT Phone (Outgoing) Mai Dixon (Self) [phone] (H) Subjective Patient Findings Negatives: Signs/symptoms of [...] noted by Pharmacist: Yes Telma Dewitt CPhT 12/18/2022, 8:55 AM * Telma Alfred RPh - 12/18/2022 8:17 AM EDT Coumadin Clinic (region specific) Objective Current Warfarin Dose As of 12/18/2022 Warfarin maintenance plan: 5 mg (5 mg x 1) every Mon, Fri; 2.5 mg (5 mg x 0.5) all other days INR Result As of 12/18/2022 INR goal: 2.0-3.0 INR used for dosin.6 (12/17/2022) Assessment & Plan Warfarin Plan As of 12/18/2022 Full warfarin instructions: 5 mg every Mon, Fri; 2.5 mg all other days No change documented: Telma Alfred RPh Next INR check: 02/04/2023 Repeat PT/INR in 7 week(s) Weekly dose: not changed Additional Dosing Information: Description [facility] Tech to contact patient with dose instructions as noted. Telma Alfred RPh 12/18/2022, 8:18 AM documented in this encounter Plan of Treatment Upcoming Encounters Date Type Specialty Care Team Description 02/04/2023 Laboratory Laboratory [place] [facility] [place] [facility] Draw [address] [place] [address] Health Maintenance Due Date Last Done Comments PAP SMEAR-EVERY 3 YRS,AGES 18-100 09/21/2013 09/21/2010 (Done elsewhere), 09/20/2008 (Done elsewhere), 12/17/1998 Zoster Vaccines (2 of 3) 03/14/2014 01/17/2014 DXA Scan 08/15/2018 08/15/2016, 06/07, 02/08/2007, Additional history exists *BISPHONATE OR OTHER ACCEPTABLE MEDICATION NEEDED FOR OSTEOPOROSIS (REFER TO SMARTSET #1146) 03/25/2019 Albumin/Creatinine Ratio 10/10/2020 10/11/2019 CKD PHOS USE SMARTSET 46316 10/10/2020 08/06/2019, 09/01/2018, 02/18/2011, Additional history exists Depression Screening 03/28/2022 03/28/2021 COVID-19 Vaccine ( season) 2022 06/27/2020, 06/06/2020 Influenza Vaccine (FLU shot) (#1) 2022 01/24/2022, 11/28/2020, 12/02/2019, Additional history exists CKD HGB USE SMARTSET 85237 01/24/202301/24, 01/24/2022, 01/23/2021, Additional history exists DTaP,Tdap,and Td Vaccines (2 - Td or Tdap) 10/31/2024 10/31/2014, 04/03/1994 Pneumococcal Vaccine: 65+ Years Completed 09/12/2016, 05/23/2002 VITAMIN D LEVEL ONCE IN A LIFETIME-USE SMARTSET# [id number] Completed 07/25/2022, 01/24/2022, 01/23/2021, Additional history exists [...] this encounter Medical Devices Implanted Type Area Assessment Services Manager Device Identifier Shelf Expiration Date Model / Serial / Lot Filter Navalign Femoral Tulip - [id number] Implanted:Qty: 1 on 02/17/2011 [place] [facility] [place]A: Vena Cava COOK : [employer] 12/06/2013 [id number] / / [id number] documented as of this encounter Visit Diagnoses [...] the patient have Health Care Power of Strap Maker? No Code Status History Code Status Date Activated Date Inactivated Comments Full Code 02/17/2011 1:54 PM 02/17/2011 1:57 PM Thi s order reflects the patients wishes and were consensually agreed upon. Question Answer Comments Discussion of Advance Directives occurred with: Not Discussed Care Teams Furnace Keeper Relationship Specialty Start Date End Date Edwin Otto MD [address] [place] [address] PCP - General 05/20/02 documented as of this encounter
--- OUTSIDE RECORDS SUMMARY | 2023-03-21 13:24 | External Medical Summary ---
Author Name Unknown Address Unknown Organization K0G:[facility] [address] [place] [address] Laboratory Report Ordering Provider Test Date Status RUBIA CRISOSTOMO 02/18/2023 08:36:00 Final Standing order for pt/inr. < br/>Please draw pt/inr every 1 to 4 weeks as requested
Results to [facility]

Warfarin Therapy
INR: 2.0-3.0 conventional anticoagulation
INR: 2.5-3.5 high intensity anticoagulation Observation Date Value Abnormality Reference (Units ) Status PT 02/18/2023 08:36:00 59.4 Above high normal 11 .6-15.2 (seconds) Final Results rechecked. INR 02/18/2023 08:36:00 6.3 Above upper panic li mits 0.8-1.2 Final Results rechecked. Performing Location [facility] [address] [place] [address]
--- OUTSIDE RECORDS SUMMARY | 2023-03-21 13:24 | External Medical Summary | Summary of Care ---
Author Name Unknown Organization [facility] Address [address] [facility] [facility] [address] Phone [phone] Care Team Providers Care Referral Specialist Name Role Phone Edwin Otto MD Primary Care Provider [phone] Reason for Visit * Reason Comments Dosage Adjustment Via Phone (anticoag Cl inic) Encounter Details Date Type Department Care Team Description 09/25/2022 Anticoagulation Pharmacy Call Center [address] [facility] [place] [address] [facility] [address] [facility] [place] [address] History of pulmonary embolus (PE)* Allergies No known active allergiesdocumented as of this encounter (statuses as of 09/25/2022) Medications Medication Sig Dispensed Refills Start Date [...] as of this encounter (statuses as of 09/25/2022) Active Problems Problem Noted Date Other pulmonary [...] as of this encounter (statuses as of 09/25/2022) Resolved Problems Problem Noted Date Resolved Date Major depressive disorder, recurrent episode, mo derate 10/31/2014 05/04/2015 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 Right heart strain/distension on CT. Transferred from [facility]. Post knee replacement surgery. Dyslipidemia, goal to be determined 02/13/2009 02/14/2013 Overview: Per Lipid Taxonomy. Osteoporosis 01/13/2005 09/12/2016 Actinic keratosis 02/23/2002 07/10/2017 SUPERFIC PHLEBITIS-LEG 12/19/1997 8 Chest pain 07/10/2017 PURE HYPERCHOLESTEROLEM 02/14/20 09 Overview: Per Lipid Taxonomy. Back disorder 07/10/2017 documented as of this encounter (statuses as of 09/25/2022) Immunizations Name Administration Dates Next Due COVID-19 [...] of this encounter Progress Notes * Telma Alfred RPh - 09/25/2022 3:12 PM EDT Noted Telma Alfred Rph, Pharm.D. Clinical Pharmacist [facility] ([facility]) (formerly Telepharmacy) [phone] 09/25/2022,3:12 PM * Telma Dewitt CPhT - 09/25/2022 1:43 PM EDT Contacts Type Contact Phone/Fax 09/25/2022 01:40 PM EDT Phone (Outgoing) DixonMai fuentes (Self) [phone] (H) Patient Findings Positives: Bruising (Some bruising and redness on her arm. Its starting to go away. Aware to call us if it becomes large or painful) Negatives: Signs/symptoms of bleeding, Change in health, Change in activity, Upcoming invasive procedure, Missed doses, Extra doses, Change in medications, Change in diet/appetite Advised patient to contact Anticoagulation Clinic if any unusual bruising or bleeding, recent illness, changes in medication, or questions/concerns. PT/INR results, Coumadin dose instructions, and next PT/INR date communicated as noted by Pharmacist: Yes Telma Dewitt CPhT 09/25/2022, 1:43 PM * Telma Alfred RPh - 09/25/2022 8:25 AM EDT Coumadin Clinic (region specific) Current Warfarin Dose As of 09/25/2022 Warfarin maintenance plan: 5 mg (5 mg x 1) every Mon, Fri; 2.5 mg (5 mg x 0.5) all other days INR Result As of 09/25/2022 INR goal: 2.0-3.0 INR used for dosin.3 (09/24/2022) Warfarin Plan As of 09/25/2022 Full warfarin instructions: 5 mg every Mon, Fri; 2.5 mg all other days No change documented: Telma Alfred RPh Next INR check: 11/05/2022 Repeat PT/INR in 6 week(s) Weekly dose: not changed Additional Dosing Information: Description [facility] Tech to contact patient with dose instructions as noted. Telma Alfred RPh 09/25/2022, 8:26 AM documented in this encounter Plan of Treatment Upcoming Encounters Date Type Specialty Care Team Description 11/05/2022 Laboratory Laboratory Processing [facility] [place], [facility] Mobile Home Draw [address] [place] [address] 11/06/2022 [facility] [address] [place] [address] Health Maintenance Due Date Last Done Comments [...] Ratio 10/10/2020 10/11/2019 CKD PHOS USE SMARTSET 25459 10/10/2020 08/0 06/2019, 09/01/2018, 02/18/2011, Additional history exists Depression Screening, Annual for Pts 12 and Over 03/28/2022 03/28/2021 Influenza Vaccine (FLU shot) (#1) 2022 01/24/2022, 11/28/2020, 12/02/2019, Additional history exists CKD HGB USE SMARTSET 33533 01/24/202301/24, 01/24/2022, 01/23/2021, Additional history exists DTaP,Tdap,and Td Vaccines (2 - Td or Tdap) 10/31/2024 10/31/2014, 04/03/1994 Pneumococcal Vaccine: 65+ Years Completed 09/12/2016, 05/23/2002 VITAMIN D LEVEL ONCE IN A LIFETIME-USE SMARTSET# 51654 Completed 07/25/2022, 01/24/2022, 01/23/2021, Additional history exists [...] this encounter Medical Devices Implanted Type Area Trend Investigator Device Identifier Shelf Expiration Date Model / Serial / Lot Filter Navalign Femoral Tulip - [id number] Implanted:Qty: 1 on 02/17/2011 at OR [facility] [place] N/A: Vena Cava COOK : [employer] 12/06/2013 [id number] / / [id number] documented as of this encounter Visit Diagnoses [...] the patient have Health Care Power of Sausage Maker? No Code Status History Code Status Date Activated Date Inactivated Comments Full Code 02/17/2011 1:54 PM 02/17/2011 1:57 PM Thi s order reflects the patients wishes and were consensually agreed upon. Question Answer Comments Discussion of Advance Directives occurred with: Not Discussed Care Teams Referral Specialist Relationship Specialty Start Date End Date Edwin Otto MD [address] [place] [address] PCP - General 05/20/02 documented as of this encounter
--- OUTSIDE RECORDS SUMMARY | 2023-03-21 13:24 | External Medical Summary ---
Author Name Unknown Address Unknown Organization K01:[facility] [address] [place] [id number] Laboratory Report Ordering Provider Test Date Status RUBIA CRISOSTOMO 03/04/2023 08:46:00 Final Standing order for pt/inr. < br/>Please draw pt/inr every 1 to 4 weeks as requested
Results to [facility]

Warfarin Therapy
INR: 2.0-3.0 conventional anticoagulation
INR: 2.5-3.5 high intensity anticoagulation Observation Date Value Abnormality Reference (Units ) Status PT 03/04/2023 08:46:00 33.8 Above high normal 11 .6-15.2 (seconds) Final INR 03/04/2023 08:46:00 3.3 Above high normal 0. 8-1.2 Final Performing Location [facility] [address] [place] [id number]
--- OUTSIDE RECORDS SUMMARY | 2023-03-21 13:24 | External Medical Summary ---
Author Name Unknown Address Unknown Organization [id number]:[facility] [address] [place] [address] Laboratory Report Ordering Provider Test Date Status RUBIA CRISOSTOMO 09/24/2022 09:00:00 Final Standing order for pt/inr. < br/>Please draw pt/inr every 1 to 4 weeks as requested
Results to [facility] Anticoagulation Clinic

Warfarin Therapy
INR: 2.0-3.0 conventional anticoagulation
INR: 2.5-3.5 high intensity anticoagulation Observation Date Value Abnormality Reference (Units ) Status PT 09/24/2022 09:00:00 25.2 Above high normal 11 .6-15.2 (seconds) Final INR 09/24/2022 09:00:00 2.3 Above high normal 0. 8-1.2 Final Performing Location [facility] [address] [place] [id number]
--- OUTSIDE RECORDS SUMMARY | 2023-03-21 13:24 | External Medical Summary | Summary of Care ---
Author Name Unknown Organization [facility] Address [address] [facility] [address] Phone [phone] Care Team Providers Care Glove Examiner Name Role Phone Olu Otto MD Primary Care Provider [phone] Reason for Visit * Reason Comments eRx-Medication Refill Encounter Details Date Type Department Care Team Description 10/01/[address] [facility] [address] [place] [address] Olu Otto MD [address] [place] [address] Depression, unspecified depression type Allergies No known active allergiesdocumented as of this encounter (statuses as of 10/02/2022) Medications Medication Sig Dispensed Refills Start Date End Date Status Warfarin Sodium 5 MG Oral Tablet (Jantoven)Indicati ons:Deep vein thrombosis (DVT) of lower extremity, unspecified chronicity, unspecified laterality, unspecified vein (HCC),Anticoagulat ion management encounter,Other pulmonary embolism without acute cor pulmonale, unspecified chronicity (HCC) take half to one tablet by mouth daily as directed by the coumadin clinic 90 Tablet 3 03/31/2022 Active Vitamin D (Cholecalciferol) 25 MCG (1000 UT) Oral TabletIndications: Vitamin D deficiency 1 daily 100 Tablet 3 07/25/2022 Active Citalopram Hydrobromide 20 MG Oral Tablet (CeleXA)Indication s:Depression, unspecified depression type TAKE 1 TABLET BY MOUTH ONCE DAILY 90 Tablet 3 10/02/2022 Active Citalopram Hydrobromide 20 MG Oral Tablet (CeleXA)Indication s:Depression, unspecified depression type TAKE 1 TABLET BY MOUTH ONCE DAILY 90 Tablet 1 05/22/2021 3 Discontinued documented as of this encounter (statuses as of 10/02/2022) Active Problems Problem Noted Date Other pulmonary [...] as of this encounter (statuses as of 10/02/2022) Resolved Problems Problem Noted Date Resolved Date Major depressive disorder, recurrent episode, mo derate 10/31/2014 05/04/2015 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 Right heart strain/distension on CT. Transferred from [facility]. Post knee replacement surgery. Dyslipidemia, goal to be determined 02/13/2009 02/14/2013 Overview: Per Lipid Taxonomy. Osteoporosis 01/13/2005 09/12/2016 Actinic keratosis 02/23/2002 07/10/2017 SUPERFIC PHLEBITIS-LEG 12/19/1997 8 Chest pain 07/10/2017 PURE HYPERCHOLESTEROLEM 02/14/20 09 Overview: Per Lipid Taxonomy. Back disorder 07/10/2017 documented as of this encounter (statuses as of 10/02/2022) Immunizations Name Administration Dates Next Due COVID-19 [...] encounter Miscellaneous Notes * Telephone Encounter - Jonny Palumbo [facility] - 10/02/2022 7:59 AM EDT Signed Prescriptions: Disp Refills Citalopram Hydrobromide 20 MG Oral Tablet *90 Tab*3 Sig: TAKE 1 TABLET BY MOUTH ONCE DAILYAuthorizing Provider: OLU OTTO User: JONNY PALUMBO-- documented in this encounter Plan of Treatment Upcoming Encounters Date Type Specialty Care Team Description 11/05/2022 Laboratory Laboratory [place] [facility] [place] [facility] Draw [address] [place] [address] 11/06/2022 [facility] [address] [place] [address] Health Maintenance Due Date Last Done Comments [...] Ratio 10/10/2020 10/11/2019 CKD PHOS USE SMARTSET 55426 10/10/2020 08/0 06/2019, 09/01/2018, 02/18/2011, Additional history exists Depression Screening, Annual for Pts 12 and Over 03/28/2022 03/28/2021 Influenza Vaccine (FLU shot) (#1) 2022 01/24/2022, 11/28/2020, 12/02/2019, Additional history exists CKD HGB USE SMARTSET 43485 01/24/202301/24, 01/24/2022, 01/23/2021, Additional history exists DTaP,Tdap,and Td Vaccines (2 - Td or Tdap) 10/31/2024 10/31/2014, 04/03/1994 Pneumococcal Vaccine: 65+ Years Completed 09/12/2016, 05/23/2002 VITAMIN D LEVEL ONCE IN A LIFETIME-USE SMARTSET# [id number] Completed 07/25/2022, 01/24/2022, 01/23/2021, Additional history exists [...] this encounter Medical Devices Implanted Type Area Site Inspector Device Identifier Shelf Expiration Date Model / Serial / Lot Filter Navalign Femoral Tulip - [id number] Implanted:Qty: 1 on 02/17/2011 at OR [facility] [place] N/A: Vena Cava COOK : [employer] 12/06/2013 [id number] / / [id number] documented as of this encounter Visit Diagnoses Diagnosis Depression, unspecified depression type documented in this encounter Advance Directives Latest [...] the patient have Health Care Power of Case Management Manager? No Code Status History Code Status Date Activated Date Inactivated Comments Full Code 02/17/2011 1:54 PM 02/17/2011 1:57 PM Thi s order reflects the patients wishes and were consensually agreed upon. Question Answer Comments Discussion of Advance Directives occurred with: Not Discussed Care Teams Glove Examiner Relationship Specialty Start Date End Date Olu Otto MD [address] [place], [place] [id number] PCP - General 05/20/02 documented as of this encounter
--- OUTSIDE RECORDS SUMMARY | 2023-03-21 13:24 | External Medical Summary | Summary of Care ---
Author Name Unknown Organization [facility] Address [address] [facility] [place] [address] Phone [phone] Care Team Providers Care Drafter Civil Engineering Name Role Phone Edwin Otto MD Primary Care Provider [phone] Reason for Visit * Reason Comments Dosage Adjustment Via Phone (anticoag Cl inic) Encounter Details Date Type Department Care Team (Latest Contact Info) Description 02/04/2023 6:00 PM [facility] Anticoagulation Pharmacy Call Center [address] [facility] [place] [address] 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 Right heart strain/distension on CT. Transferred from [facility]. Post knee replacement surgery. Dyslipidemia, goal to be determined 02/13/2009 02/14/2013 Overview: Per Lipid Taxonomy. Osteoporosis 01/13/2005 09/12/2016 Actinic keratosis 02/23/2002 07/10/2017 SUPERFIC PHLEBITIS-LEG 12/19/199707/10 Chest pain 07/10/2017 PURE HYPERCHOLESTEROLEM 12/0 10/2008 Overview: Per Lipid Taxonomy. Back disorder 07/10/2017 documented as of this encounter (statuses as of 02/04/2023) Immunizations Name Administration Dates Next Due COVID-19 [...] as of this encounter Progress Notes * Yolanda Adams, display associate - 02/04/2023 1:20 PM EST Contacts Type Contact Phone/Fax 02/04/2023 01:10 PM EST Phone (Outgoing) Mai Dixon (Self) [phone] (H) Subjective Patient Findings Negatives: Signs/symptoms of bleeding, Change in health, Change in activity, Upcoming invasive procedure, Missed doses, Extra doses, Change in medications, Change in diet/appetite, Bruising Advised patient to contact Anticoagulation Clinic if any unusual bruising or bleeding, recent illness, changes in medication, or questions/concerns. PT/INR results, Coumadin dose instructions, and next PT/INR date communicated as noted by Pharmacist: Yes ROLANDO KWONG Tech 02/04/2023, 1:20 PM * Telma Alfred RPh - 02/04/2023 1:06 PM EST Images from the original note were not included. Coumadin Clinic (region specific) Objective Current Warfarin Dose As of 02/04/2023 Warfarin maintenance plan: 5 mg (5 mg x 1) every Mon, Fri; 2.5 mg (5 mg x 0.5) all other days INR Result As of 02/04/2023 INR goal: 2.0-3.0 INR used for dosin.6 (02/04/2023) Assessment & Plan Warfarin Plan As of 02/04/2023 Full warfarin instructions: 02/04: Hold; 02/05: Hold; 02/06: 2.5 mg; Otherwise 5 mg every Mon, Fri; 2.5 mg all other days Next INR check: 02/18/2023 Repeat PT/INR in 2 week(s) to confirm INR in range then can extend back to 7 wk check Weekly dose: not changed Additional Dosing Information: Description [facility] Tech to contact patient with dose instructions as noted. Telma Alfred RPh 02/04/2023, 1:06 PM documented in this encounter Plan of Treatment Health Maintenance Due Date Last Done Comments PAP SMEAR-EVERY 3 YRS,AGES 18-100 09/21/2013 09/21/2010 (Done elsewhere), 09/20/2008 (Done elsewhere), 12/17/1998 Zoster Vaccines (2 of 3) 03/14/2014 01/17/2014 DXA Scan 08/15/2018 08/15/2016, 06/07, 02/08/2007, Additional history exists *BISPHONATE OR OTHER ACCEPTABLE MEDICATION NEEDED FOR OSTEOPOROSIS (REFER TO SMARTSET #1146) 03/25/2019 Albumin/Creatinine Ratio 10/10/2020 10/11/2019 CKD PHOS USE SMARTSET 42458 10/10/2020 08/0 06/2019, 09/01/2018, 02/18/2011, Additional history exists Depression Screening 03/28/2022 03/28/2021 COVID-19 Vaccine ( season) 2022 06/27/2020, 06/06/2020 Influenza Vaccine (FLU shot) (#1) 2022 01/24/2022, 11/28/2020, 12/02/2019, Additional history exists CKD HGB USE SMARTSET 23784 01/24/202301/24, 01/24/2022, 01/23/2021, Additional history exists DTaP,Tdap,and Td Vaccines (2 - Td or Tdap) 10/31/2024 10/31/2014, 04/03/1994 Pneumococcal Vaccine: 65+ Years Completed 09/12/2016, 05/23/2002 VITAMIN D LEVEL ONCE IN A LIFETIME-USE SMARTSET# 60640 Completed 07/25/2022, 01/24/2022, 01/23/2021, Additional history exists [...] this encounter Medical Devices Implanted Type Area Front Counter Clerk Device Identifier Shelf Expiration Date Model / Serial / Lot Filter Navalign Femoral Tulip - [id number] Implanted:Qty: 1 on 02/17/2011 at [place] [facility] [place] N/A: Vena Cava COOK : [employer] 12/06/2013 [id number] / / [id number] documented as of this encounter Visit Diagnoses [...] the patient have Health Care Power of Office Administrative Assistant? No Code Status History Code Status Date Activated Date Inactivated Comments Full Code 02/17/2011 1:54 PM 02/17/2011 1:57 PM Thi s order reflects the patients wishes and were consensually agreed upon. Question Answer Comments Discussion of Advance Directives occurred with: Not Discussed Care Teams Drafter Civil Engineering Relationship Specialty Start Date End Date Edwin Otto MD [address] [place] [address] PCP - General 05/20/02 documented as of this encounter
--- OUTSIDE RECORDS SUMMARY | 2023-03-21 13:24 | External Medical Summary ---
Author Name Unknown Address Unknown Organization K0G:[facility] [address] [place] [address] Laboratory Report Ordering Provider Test Date Status RUBIA CRISOSTOMO 02/04/2023 07:32:00 Final Standing order for pt/inr. < br/>Please draw pt/inr every 1 to 4 weeks as requested
Results to [facility]

Warfarin Therapy
INR: 2.0-3.0 conventional anticoagulation
INR: 2.5-3.5 high intensity anticoagulation Observation Date Value Abnormality Reference (Units ) Status PT 02/04/2023 07:32:00 51.8 Above high normal 11 .6-15.2 (seconds) Final Results rechecked. INR 02/04/2023 07:32:00 5.6 Above upper panic li mits 0.8-1.2 Final Results rechecked. Performing Location [facility] [address] [place] [address]
[2023-03-21 13:37] LABS: Basophils # (auto) 0.01 K/uL (0.00-0.20); Basophils % (auto) 0.1 %; Eosinophils # (auto) 0.05 K/uL (0.00-0.50); Eosinophils % (auto) 0.7 %; Hematocrit (blood only) 34.4 % (37.0-47.0); Hemoglobin 12.4 g/dl (12.0-16.0); Immature Granulocytes # (auto) 0.02 K/uL (0.01-0.20); Immature Granulocytes % (auto) 0.3 %; Lymphocytes # (auto) 0.85 K/uL (1.20-3.40); Lymphocytes % (auto) 12.3 %; Mean Corpuscular Hemoglobin 36.2 pg (25.0-34.0); Mean Corpuscular Volume 100.3 fL (80.0-100.0); Mean Platelet Volume 8.9 fL (9.4-12.4); Monocytes # (auto) 0.65 K/uL (0.11-0.59); Monocytes % (auto) 9.4 %; Neutrophils # (auto) 5.32 K/uL (1.40-6.50); Neutrophils % (auto) 77.2 %; Platelet Count 212 K/uL (130-400); RDW Coefficient of Variation 13.4 % (11.5-14.5); RDW Standard Deviation 49.7 fL (36.4-46.3); Red Blood Count 3.43 M/uL (4.20-5.40)
--- NOTE | 2023-03-21 13:50 | Emergency Department Note ---
Impression & Plan Hyponatremia, Hypokalemia, UTI (urinary tract infection), Generalized weakness, Ambulatory dysfunction ED Provider Note NAME: TIMOTEO MARTINEZ AGE: 88 SEX: F : 1935 ARRIVES VIA: Ambulance INFORMANT: Patient, ED PROVIDER(S): Douglas Pretty MD CHIEF COMPLAINT: Weakness MEDICAL DECISION MAKING: Patient presents due to concern for weakness and possible UTI. IV was established blood work is obtained urinalysis ordered in addition to urine culture. Patient was ordered IV fluids. Patient's blood work does show normal white count normal hemoglobin and platelet count. The patient's kidney function is unremarkable but with prerenal azotemia. Patient had already been ordered IV fluids. Hyponatremia hypokalemia noted. Magnesium normal. Urinalysis currently grossly negative the patient has been on Keflex at home. Given the patient's weakness and hyponatremia did speak with the inpatient service and patient was admitted by [facility] service. Discussion w/ other healthcare providers: NATHALIE Fried and [facility] Prior /Outside records reviewed: None Differential diagnosis: Infection, dehydration, metabolic abnormality, hypo/hyperglycemia, electrolyte imbalance, anemia, UTI, pneumonia, thyroid dysfunction among others were considered. Diagnostics, as interpreted by me: ECG: Sinus with PACs, rate of 63, normal axis, T wave versions in the lateral high lateral as well as anterior leads. Cardiac monitoring: An order was placed for continuous cardiac monitoring. The monitor shows a rate of 65 with sinus rhythm. Patient was placed on pulse oximetry Medical decision rules: None Imaging studies: I informally interpreted the patient's chest x-ray which does not show obvious pneumonia or pneumothorax with formal report to follow. HPI: Patient presents due to concern for increasing weakness and fatigue. EMS reported the patient was currently laying on a mattress that was on the floor. The patient has had some increasing urinary incontinence which she did she her primary care doctor Dr. Talavera for several days ago was started on Keflex. Patient is accompanied by family does live with one of her brothers. Patient denies any falls or trauma and has no head or neck pain. The patient denies any significant abdominal pain but does have some suprapubic symptoms. Patient has not been eating or drinking very much either PAST MEDICAL HISTORY: See Below PAST SURGICAL HISTORY: See Below SOCIAL HISTORY: See Below HOME MEDICATIONS: See Below ALLERGIES: See Below VITALS: See Below PHYSICAL EXAMINATION: GENERAL: NAD, non-toxic. Wearing glasses. Fatigable in appearance EYE EXAM: Normal conjunctiva. PERRL, no anisocoria and EOM's grossly intact w/o pain. OROPHARYNX: Dry mucus membranes, grossly normal dentition. NECK: Supple, no nuchal rigidity, no adenopathy, non-tender. No signs of meningismus. FROM of the neck with good chin to chest and neck extension. No stridor. LUNGS: Clear to auscultation. Normal chest wall mechanics. HEART: NSR, no MRG. ABDOMEN: Abdomen soft, suprapubic discomfort without upper abdominal pain no masses, no rebound or guarding. BACK: No CVA TTP. SKIN: No rashes and no bruising. UPPER EXTREMITIES: Upper extremities are grossly normal. LOWER EXTREMITIES: Grossly normal, no edema. NEURO EXAM: A&O x3, cranial nerves II-XII grossly intact, normal speech, moves all 4 extremities. Past Med/Surg History Medical History Depression History of pulmonary embolism Yaa filter in place Dyslipidemia Surgical History History of appendectomy History of total right knee replacement Social History Smoking Status: Never smoker Hx Alcohol Use: No Hx Substance Use: No Preferred Language: Nepali Communication Ability: Effective Certified Midwife Required: No Beliefs That Will Affect Care: None Current Living Situation: Family Current Living Situation Comment: lives with david Moon Other Information That Helps Us Care for You: No Feels Safe at Home: Yes Safety Concerns: Feels Safe At This Time Assistive Devices: Cane and Glasses Allergies Allergies Allergy/AdvReac Type Severity Reaction Status Date / Time No Known Allergies Allergy Unverified 01/12/12 07:54 Home Meds Home Medications Medication Instructions Recorded Confirmed cephalexin 500 mg capsule 500 mg PO BID 03/21/23 03/21/23 citalopram 20 mg tablet 20 mg PO DAILY 03/21/23 03/21/23 warfarin 5 mg tablet (Jantoven) 2.5 mg PO SUMOTUWETHSA 03/21/23 03/21/23 warfarin 5 mg tablet (Jantoven) 5 mg PO FR 03/21/23 03/21/23 Results & Data (ED) Vital Signs Vital Signs - 24 hr 03/21/23 13:10 03/21/23 14:53 Temperature 36.9 C Temperature Source Oral Pulse Rate 61 Pulse Rate [Left Finger] 69 Pulse Rhythm Regular Pulse Strength Normal Respiratory Rate 21 20 Respiratory Effort / Characteristics Non-Labored Spontaneous Respiratory Depth Normal Respiratory Pattern Regular Blood Pressure 188/77 H Blood Pressure [Left Arm] 169/79 H Blood Pressure Mean 114 Blood Pressure Mean [Left Arm] 109 Blood Pressure Position Lying Blood Pressure Position [Left Arm] Sitting Pulse Oximetry 92 98 Oxygen Delivery Method Room Air Room Air Sepsis Recent Fever Within 48 Hours No Sepsis New/Unexplained Change in Mental Status No Sepsis Action Taken by Nursing No Action Required Home Medications Current Medication List: was personally reviewed by me Laboratory Data Attestation: I reviewed the patient's lab results. 03/22/23 06:20 03/22/23 06:20 Lab Results 03/21/23 03/21/23 03/21/23 Range/Units 13:21 14:24 14:25 WBC 6.90 (4.8-10.8) K/ul RBC 3.43 L (4.20-5.40) M/uL Hgb 12.4 (12.0-16.0) g/dl Hct 34.4 L (37.0-47.0) % MCV 100.3 H (80.0-100.0) fL MCH 36.2 H (25.0-34.0) pg MCHC 36.0 (32.0-36.0) g/dL RDW Std Deviation 49.7 H (36.4-46.3) fL RDW Coeff of João 13.4 (11.5-14.5) % Plt Count 212 (130-400) K/uL MPV 8.9 L (9.4-12.4) fL Immature Gran % (Auto) 0.3 % Neut % (Auto) 77.2 % Lymph % (Auto) 12.3 % [place]oyah % (Auto) 9.4 % Eos % (Auto) 0.7 % Baso % (Auto) 0.1 % Neut # (Auto) 5.32 (1.40-6.50) K/uL Lymph # (Auto) 0.85 L (1.20-3.40) K/uL [place]ah # (Auto) 0.65 H (0.11-0.59) K/uL Eos # (Auto) 0.05 (0.00-0.50) K/uL Baso # (Auto) 0.01 (0.00-0.20) K/uL Immature Gran # (Auto) 0.02 (0.01-0.20) K/uL PT Cancelled 53.3 H INR Cancelled 5.4 H APTT Cancelled 52 H PTT Ratio Cancelled 1.8 Sodium 129 L (136-145) mmol/L Potassium 3.1 L (3.5-5.1) mmol/L Chloride 88 L (98-107) mmol/L Carbon Dioxide 33 H (21-32) mmol/L Anion Gap 8 (3-11) BUN 14 (6-23) mg/dl Creatinine 0.58 L (0.6-1.2) mg/dl Est Cr Clr Drug Dosing 53.0 ml/min Est GFR ( Amer) 95.4 ml/min Est GFR (Non-Af Amer) 82.3 ml/min BUN/Creatinine Ratio 24.1 H (10-20) Glucose 97 (70-99(Fasting)) mg/dl Osmolality 268 L (280-300) mOsm/kg Calcium 8.7 (8.6-10.3) mg/dl Magnesium 2.3 (1.7-2.4) mg/dl Total Bilirubin 1.1 H (0.2-1.0) mg/dl AST 24 (13-39) U/L ALT 12 (7-52) U/L Alkaline Phosphatase 68 (34-104) U/L Total Protein 6.4 (6.0-8.3) gm/dl Albumin 3.5 (3.4-5.0) gm/dl Globulin 2.9 (2.5-4.0) gm/dl Albumin/Globulin Ratio 1.2 (0.9-2) Urine Color Dark Yellow Urine Appearance Clear (Clear) Urine pH 5.5 (4.5-7.5) Ur Specific [place] 1.023 (1.000-1.030) Urine Protein Negative (Negative) Urine Glucose (UA) Negative (Negative) Urine Ketones Trace H (Negative) Urine Blood Negative (Negative) Urine Nitrite Negative (Negative) Urine Bilirubin Negative (Negative) Urine Urobilinogen Negative (Negative) Ur Leukocyte Esterase Negative (Negative) Administered Medications Acetaminophen (Acetaminophen 325 Mg Tab) 650 mg PO Q4H PRN PRN Reason: pain/fever Stop: 04/20/23 17:08 Last Admin: 03/21/23 18:19 Dose: 650 mg Documented By: LOPEZ Citalopram Hydrobromide (Citalopram 20 Mg Tab) 20 mg PO DAILY ESPERANZA Stop: 04/21/23 08:59 Last Admin: 03/22/23 09:36 Dose: 20 mg Documented By: LOPEZ Lactobacillus Acidophilus (Advanced Probiotic 1250 Mg Capsule) 2 cap PO DAILY ESPERANZA Stop: 04/20/23 19:44 Last Admin: 03/22/23 08:39 Dose: 2 cap Documented By: Admin: 03/21/23 20:47 Dose: 2 cap Documented By: SHIVA Discontinued Medications Hydralazine HCl (Hydralazine Hcl 20 Mg/Ml Vial) 5 mg IV NOW ONE Stop: 03/21/23 15:43 Last Admin: 03/21/23 16:00 Dose: 5 mg Documented By: BOBBY Hydralazine HCl (Hydralazine Hcl 20 Mg/Ml Vial) 5 mg IV NOW ONE Stop: 03/21/23 18:34 Last Admin: 03/21/23 19:07 Dose: 5 mg Documented By: LOPEZ Ceftriaxone Sodium (Rocephin) 2,000 mg in 50 mls @ 100 mls/hr IV NOW STA Stop: 03/21/23 14:39 Last Infusion: 03/21/23 15:52 Dose: Infused Documented By: Admin: 03/21/23 14:49 Dose: 100 mls/hr Documented By: BOBBY Sodium Chloride (Nss) 1,000 mls @ 999 mls/hr IV .[id number] ONE Stop: 03/21/23 15:10 Last Infusion: 03/21/23 15:52 Dose: Infused Documented By: Admin: 03/21/23 14:22 Dose: 999 mls/hr Documented By: BOBBY Sodium Chloride (Nss) 1,000 mls @ 80 mls/hr IV .[id number] ESPERANZA Stop: 03/22/23 05:38 Last Infusion: 03/22/23 06:06 Dose: Infused Documented By: Admin: 03/21/23 17:17 Dose: 80 mls/hr Documented By: LOPEZ Potassium Chloride (Potassium Chloride Crtab 20 Meq Tabcr) 40 meq PO NOW STA Stop: 03/21/23 15:32 Last Admin: 03/21/23 15:59 Dose: 40 meq Documented By: BOBBY Potassium Chloride (Potassium Chloride Crtab 20 Meq Tabcr) 40 meq PO ONE ONE Stop: 03/22/23 09:37 Last Admin: 03/22/23 10:02 Dose: 40 meq Documented By: LOPEZ Discharge Plan Visit Data Chief Complaint: Urinary Symptoms ED Provider: Douglas Pretty Discharge Problem: Hyponatremia, Hypokalemia, UTI (urinary tract infection), Generalized weakness, Ambulatory dysfunction Patient Disposition: Admitted As Inpatient Discharge Instructions Interventions: ED Discharge Assessment Last Done: 03/21/23 16:17 Discharge Problem: UTI (urinary tract infection) Qualifiers: Urinary tract infection type: site unspecified
[2023-03-21 13:51] LABS: Albumin Globulin Ratio 1.2 (0.9-2); Albumin Level 3.5 gm/dl (3.4-5.0); BUN Creatinine Ratio 24.1 (10-20); Bilirubin,Total 1.1 mg/dl (0.2-1.0); Calcium 8.7 mg/dl (8.6-10.3); Est GFR (African American) 95.4 ml/min; Est GFR (Non-African American) 82.3 ml/min; Globulin 2.9 gm/dl (2.5-4.0); Potassium 3.1 mmol/L (3.5-5.1); Total Protein 6.4 gm/dl (6.0-8.3)
[2023-03-21] MEDS ORDERED: cefTRIAXone SODIUM 2,000 MG/50 ML BAG IV STA (14:10)
[2023-03-21] MEDS ORDERED: SODIUM CHLORIDE 0.9% 1,000 ML IV ONE (14:10)
--- NOTE | 2023-03-21 14:34 | XRay Report ---
SINGLE VIEW CHEST CLINICAL HISTORY: Dyspnea FINDINGS: An AP, portable, upright chest radiograph is compared to study dated 01/10/2011. The heart i s enlarged noting atherosclerotic calcification of the thoracic aorta. The pulmonary vasculature is n ot congested. Chronic interstitial thickening is similar to previous. There is mild bibasilar scarrin g/atelectasis. No airspace consolidation or large pleural effusion is identified. No pneumothorax is seen. The skeletal structures are osteopenic. The bony thorax is grossly intact. The tip of an IVC fi lter is noted in the upper abdomen. IMPRESSION: Cardiomegaly with no active disease in the chest. ACT 112: Negative or not required by law. Electronically signed by: Tray Hendricks M.D. 03/21/2023 2:32 PM
[2023-03-21 14:54] LABS: Appearance Urine Clear (Clear); Bilirubin Urine Negative (Negative); Blood Urine Negative (Negative); Color Urine Dark Yellow; Glucose Urine UA Negative (Negative); Ketones Urine Trace (Negative); Leukocyte Esterase Urine Negative (Negative); Nitrite Urine Negative (Negative); Protein Urine Negative (Negative); Specific Gravity Urine 1.023 (1.000-1.030); Urobilinogen Urine Negative (Negative); pH Urine 5.5 (4.5-7.5)
[2023-03-21 15:19] LABS: INR 5.4 (0.9-1.1); Partial Thromboplastin Ratio 1.8; Partial Thromboplastin Time 52 Seconds (21-31); Prothrombin Time 53.3 Seconds (9.0-12.0)
[2023-03-21] MEDS ORDERED: POTASSIUM CHLORIDE CRTAB 20 MEQ TABCR PO STA (15:31)
[2023-03-21] MEDS ORDERED: hydrALAZINE HCL 20 MG/ML VIAL IV ONE ×2 (15:42→18:33)
[2023-03-21 16:25] LABS: Magnesium 2.3 mg/dl (1.7-2.4)
[2023-03-21] MEDS ORDERED: SODIUM CHLORIDE 0.9% 1,000 ML IV SCH (17:09)
[2023-03-21] MEDS: ACETAMINOPHEN 325 MG TAB PO PRN (18:19)
--- NOTE | 2023-03-21 18:45 | History & Physical Report ---
Date of Service March 21, 2023 Assessment & Plan (1) UTI (urinary tract infection): Plan: Admit to [facility] Patient presenting from home with reports of generalized weakness. Diagnosed with presumed UTI and has been on Keflex. Urine sample was not obtained. Patient reports mild improvement in urinary symptoms since starting Keflex however still present UA does not appear infected however given ongoing symptoms, will treat. S/p IV ceftriaxone in the ED, continue with Follow urine culture (2) Generalized weakness: (3) Ambulatory dysfunction: Plan: Likely due to UTI PT/OT, case management. Patient may need placement for rehab. (4) Elevated blood pressure reading: Plan: BP on presentation 188/77 and has been persistently elevated No prior history of HTN May be situational Will trial hydralazine, add oral agent as needed (5) Hyponatremia: Plan: Na+ 129 Likely hypovolemic hyponatremia in the setting of poor p.o. intake IVF, follow sodium (6) Hypokalemia: Plan: K+ 3.1 Replace, follow electrolytes (7) History of pulmonary embolism: Plan: S/p Yaa filter and anticoagulated on Coumadin INR 5.4, no signs of bleeding Hold Coumadin for now, follow INR DVT PROPHYLAXIS On Coumadin with supratherapeutic INR Patient seen in collaboration with Dr. Tovar. I spent a total of 75 minutes coordinating, documenting, and providing care for this patient excluding time spent in the performance of separately billed services. This included personally reviewing all current laboratories and imaging studies, medication reconciliation, outpatient chart review, and discussion with specialists. Admission and Anticipated Discharge Date Admission Date: March 21, 2023 History of Present Illness Chief Complaint: Generalized weakness Primary Care Provider: Edwin Otto MD 88-year-old female with H dyslipidemia, history of pulmonary embolism s/p Yaa filter anticoagulated on Coumadin, depression, and other problems listed below who presents to the ED for evaluation of generalized weakness. History is obtained from the patient and review of outpatient PCP records. Over the past 1 week, patient has been very weak. She has had difficulty ambulating. Has not had any falls. She reports bladder pressure and urinary frequency. PCP prescribed a course of Keflex. Patient did not have a UA or culture obtained. She reports some mild improvement in urinary symptoms since starting Keflex. No fevers or chills. Reports a very poor appetite however denies abdominal pain, nausea, vomiting, diarrhea. No chest pain or shortness of breath. Denies lightheadedness, dizziness, diaphoresis, syncopal events. In the ED, labs show Na+ 129, K+ 3.1. UA does not appear infected. Patient was given IV ceftriaxone and IVF. Allergies Allergy/AdvReac Type Severity Reaction Status Date / Time No Known Allergies Allergy Unverified 01/12/12 07:54 Home Medications Medication Instructions Recorded Confirmed Type cephalexin 500 mg capsule 500 mg PO BID 03/21/23 03/21/23 History citalopram 20 mg tablet 20 mg PO DAILY 03/21/23 03/21/23 History warfarin 5 mg tablet (Jantoven) 2.5 mg PO SUMOTUWETHSA 03/21/23 03/21/23 History warfarin 5 mg tablet (Jantoven) 5 mg PO FR 03/21/23 03/21/23 History Past Med/Surg History Medical History Depression History of pulmonary embolism [place] filter in place Dyslipidemia Surgical History History of appendectomy History of total right knee replacement Social History Smoking Status: Never smoker Hx Alcohol Use: No Hx Substance Use: No Preferred Language: Spanish Communication Ability: Effective Weigher Bulker Required: No Beliefs That Will Affect Care: None Current Living Situation: Family Current Living Situation Comment: lives with david Moon Other Information That Helps Us Care for You: No Feels Safe at Home: Yes Safety Concerns: Feels Safe At This Time Assistive Devices: Cane and Glasses Review of Systems Review of Systems: All systems reviewed & are unremarkable except as noted in Subjective Physical Exam Constitutional: WD/WN, vitals as above no acute distress Eyes: PERRL, conjunctivae normal, anicteric sclerae ENMT: external ear and nose normal, oropharynx normal Respiratory: normal respiratory effort, lungs clear to auscultation Cardiovascular: Rate/Rhythm: regular rate and regular rhythm Vessels: normal peripheral pulses Extremities: + edema (+1 edema BLE) Gastrointestinal (Abdomen): normal bowel sounds, soft, nontender, no hepatosplenomegaly Musculoskeletal: no cyanosis or clubbing, extremities motor strength 5/5 Skin: no rashes, warm and dry Neurologic: PERRL, EOMI, accommodation nl, no face palsy, no dysarthria Psychiatric: A+Ox3, euthymic affect Results & Data Results & Data Vital Signs (Past 12 Hours) Vital Signs Temp Pulse Pulse Resp BP BP Pulse Ox 03/21/23 17:20 03/21/23 16:59 36.6 C 64 16 194/84 H 97 03/21/23 16:00 61 22 175/113 H 97 03/21/23 15:53 88 L 03/21/23 14:53 69 20 169/79 H 98 03/21/23 13:10 36.9 C 61 21 188/77 H 92 O2 Del Method O2 Flow Rate 03/21/23 17:20 Nasal Cannula 2 03/21/23 16:59 Nasal Cannula 2 03/21/23 16:00 Nasal Cannula 2 03/21/23 15:53 Room Air 03/21/23 14:53 Room Air 03/21/23 13:10 Room Air Laboratory Results Short CBC 03/21/23 Range/Units 13:21 WBC 6.90 (4.8-10.8) K/ul Hgb 12.4 (12.0-16.0) g/dl Hct 34.4 L (37.0-47.0) % Plt Count 212 (130-400) K/uL BMP 03/21/23 13:21 Sodium 129 L Potassium 3.1 L Chloride 88 L Carbon Dioxide 33 H BUN 14 Creatinine 0.58 L Glucose 97 Calcium 8.7 Liver Function 03/21/23 Range/Units 13:21 Total Bilirubin 1.1 H (0.2-1.0) mg/dl AST 24 (13-39) U/L ALT 12 (7-52) U/L Alkaline Phosphatase 68 (34-104) U/L Albumin 3.5 (3.4-5.0) gm/dl Urine 03/21/23 Range/Units 14:24 Urine Color Dark Yellow Urine Appearance Clear (Clear) Urine pH 5.5 (4.5-7.5) Ur Specific [place] 1.023 (1.000-1.030) Urine Protein Negative (Negative) Urine Glucose (UA) Negative (Negative) Diagnostic Findings Chest X-Ray 03/21/23 13:19 SINGLE VIEW CHEST CLINICAL HISTORY: Dyspnea FINDINGS: An AP, portable, upright chest radiograph is compared to study dated 01/10/2011. The heart is enlarged noting atherosclerotic calcification of the thoracic aorta. The pulmonary vasculature is not congested. Chronic interstitial thickening is similar to previous. There is mild bibasilar scarring/atelectasis. No airspace consolidation or large pleural effusion is identified. No pneumothorax is seen. The skeletal structures are osteopenic. The bony thorax is grossly intact. The tip of an IVC filter is noted in the upper abdomen. IMPRESSION: Cardiomegaly with no active disease in the chest. ACT 112: Negative or not required by law. Electronically signed by: Tray Hendricks M.D. 03/21/2023 2:32 PM Code Status & VTE Plan VTE Prophylaxis Plan VTE Prophylaxis will be ordered: No Supervising Physician Co-Signing Physician Notes Patient is an 88-year-old female with multiple comorbidities on chronic anticoa gulation with Coumadin for PE and other medical problems presents with history of generalized weakness. Patient is a poor historian. Most of the history is obtained from patient's family and old records. She has been having difficulty with ambulation secondary to generalized weakness. Also admits to have some bladder pressure and increased urinary frequency. She has been on oral Keflex for possible UTI started by PCP as outpatient. She reports having some diarrhea as well. Please review HPI for complete details of presentation. I personally reviewed blood work, imaging studies, EKG. INR is supratherapeutic at 5.4. Currently no bleeding issues. Noted hyponatremia, hypokalemia and hypochloremia. EKG showed PACs and some T wave changes. Patient denied any chest pain, dyspnea. On exam patient is thin, frail, elderly, no apparent distress, normocephalic atraumatic, EOMI, normal breath sounds, clear to auscultation, regular rhythm,+ murmur, no significant pedal edema, abdomen soft, nontender, normal bowel sounds, alert, awake, oriented, grossly no focal deficits. Patient is admitted for management of generalized weakness, ambulatory dysfunction likely secondary to UTI. Also noted hyponatremia, hypochloremia. Agree with IV Rocephin, gentle IV fluids. Cultures pending. Hypertensive urgency noted in ED. Will add hydralazine as needed. Monitor and adjust blood pressure medications as needed. Hold Coumadin for supratherapeutic INR. Monitor INR. Check stool studies for diarrhea. Will repeat EKG in the morning. Replete electrolytes as needed. Check urine sodium, osmolality, serum osmolality. Check TSH. I personally reviewed the record. Patient is interviewed and examined at bedside. Patient's care is coordinated with Lorena Blanco DIVISION MANAGER. Please refer to the documentation above for details of patient's presentation and for discussion of other issues.
[2023-03-21] MEDS ORDERED: hydrALAZINE 10 MG TAB PO PRN (19:33)
[2023-03-21] MEDS: ADVANCED PROBIOTIC 1250 MG CAPSULE PO SCH (20:47)
[2023-03-22 07:00] LABS: Hematocrit (blood only) 30.9 % (37.0-47.0); Hemoglobin 10.6 g/dl (12.0-16.0); Mean Corpuscular Hemoglobin 34.4 pg (25.0-34.0); Mean Corpuscular Hgb Conc 34.3 g/dL (32.0-36.0); Mean Corpuscular Volume 100.3 fL (80.0-100.0); Mean Platelet Volume 8.7 fL (9.4-12.4); Platelet Count 193 K/uL (130-400); RDW Coefficient of Variation 13.7 % (11.5-14.5); RDW Standard Deviation 50.5 fL (36.4-46.3); Red Blood Count 3.08 M/uL (4.20-5.40); White Blood Count 6.07 K/ul (4.8-10.8)
[2023-03-22 07:11] LABS: BUN Creatinine Ratio 21.1 (10-20); Calcium 8.1 mg/dl (8.6-10.3); Est GFR (African American) 95.9 ml/min; Est GFR (Non-African American) 82.8 ml/min; Magnesium 2.1 mg/dl (1.7-2.4); Potassium 3.2 mmol/L (3.5-5.1)
[2023-03-22 07:24] LABS: Thyroid Stimulating Hormone 1.196 uIu/ml (0.300-4.500)
[2023-03-22 07:29] LABS: INR 4.5 (0.9-1.1); Prothrombin Time 44.7 Seconds (9.0-12.0)
[2023-03-22] MEDS: ADVANCED PROBIOTIC 1250 MG CAPSULE PO SCH (08:39)
[2023-03-22] MEDS: CITALOPRAM 20 MG TAB PO SCH (09:36)
[2023-03-22] MEDS ORDERED: POTASSIUM CHLORIDE CRTAB 20 MEQ TABCR PO ONE (09:36)
[2023-03-22 11:04] LABS: Adenovirus F 40/41 PCR Not Detected (NotDetected); Astrovirus PCR Not Detected (NotDetected); Campylobacter PCR Not Detected (NotDetected); Cryptosporidium PCR Not Detected (NotDetected); Cyclospora cayetanensis PCR Not Detected (NotDetected); Entamoeba histolytica PCR Not Detected (NotDetected); Enteroaggregative E.coli(EAEC) Not Detected (NotDetected); Enteropathogenic E.coli (EPEC) Not Detected (NotDetected); Enterotoxigenic E.coli (ETEC) Not Detected (NotDetected); Giardia lamblia PCR Not Detected (NotDetected); Norovirus GI/GII PCR Not Detected (NotDetected); Plesiomonas shigelloides PCR Not Detected (NotDetected); Rotavirus A PCR Not Detected (NotDetected); Salmonella PCR Not Detected (NotDetected); Sapovirus PCR Not Detected (NotDetected); Shiga-like Toxin E.coli (STEC) Not Detected (NotDetected); Shigella/Enteroinvasive E.coli Not Detected (NotDetected); Vibrio cholerae PCR Not Detected (NotDetected); Vibrio species PCR Not Detected (NotDetected); Yersinia enterocolitica PCR Not Detected (NotDetected)
[2023-03-22] MEDS: ACETAMINOPHEN 325 MG TAB PO PRN ×2 (12:33→18:34)
[2023-03-22] MEDS: cefTRIAXone SODIUM 1,000 MG in DEXTROSE 5 % MINI-B 50 ML IV SCH (14:30)
--- NOTE | 2023-03-22 15:25 | Hospitalist Progress Note ---
Date of Service March 22, 2023 Assessment & Plan (1) UTI (urinary tract infection): Plan: Patient presenting from home with reports of generalized weakness. Diagnosed with presumed UTI and has been on Keflex. Urine sample was not obtained. Patient reports mild improvement in urinary symptoms since starting Keflex however still present on presentation. UTI Urine culture pending Cultures likely unreliable as already on Keflex prior to admission Continue empiric Rocephin (2) Generalized weakness: Plan: Generalized weakness Ambulatory dysfunction Likely secondary to infection Normal TSH PT OT Fall precautions (3) Ambulatory dysfunction: Plan: Management as above (4) Elevated blood pressure reading: Plan: Hypertension urgency Not on any medications at home > Situational Hydralazine as needed Consider to add antihypertensives if BP persistently elevated (5) Hyponatremia: Plan: Hyponatremia Likely hypovolemic hyponatremia due to poor oral intake, diarrhea Received gentle IV fluids Sodium improved to 132 Monitor sodium Diarrhea Likely due to antibiotics Stool studies negative Added probiotics IV fluids as needed (6) Hypokalemia: Plan: Replete and monitor electrolytes (7) History of pulmonary embolism: Plan: S/p [place] filter and anticoagulated on Coumadin Supratherapeutic INR on presentation Currently no bleeding issues Monitor INR Hold Coumadin for now DVT Px: Supratherapeutic INR CODE STATUS DNR/DNI Disposition PT OT prior to discharge Admission and Anticipated Discharge Date Admission Date: March 21, 2023 Subjective Patient is seen and examined at bedside States feeling better today Offers no specific complaints Reports no diarrhea today Denies any chest pain, dyspnea, dizziness, nausea, vomiting, abdominal pain, dysuria Review of Systems Review of Systems: All systems reviewed & are unremarkable except as noted in Subjective Physical Exam Physical Exam: Physical Exam: Vitals signs as noted above General Appearance: Thin, frail, elderly, no apparent distress Head: normocephalic, Atraumatic Eyes: normal inspection, EOMI Neck: supple, Trachea midline Respiratory/Chest: Normal breath sounds, CTA, No accessory muscle use Cardiovascular: S1, S2, +murmur Abdomen/GI:Soft, Non tender, Bowel sounds present Extremities/Musculoskeletal:normal inspection, + edema Neurologic/Psych:AAOX3, grossly no focal neurological deficits Skin: normal color, warm Results & Data Results & Data Vital Signs (Past 12 Hours) Vital Signs Temp Pulse Resp BP Pulse Ox O2 Del Method O2 Flow Rate 01/14/24 08:25 36.7 C 67 18 166/72 H 90 Nasal Cannula 2 03/22/23 07:42 Nasal Cannula 2 Laboratory Results Short CBC 03/22/23 Range/Units 06:20 WBC 6.07 (4.8-10.8) K/ul Hgb 10.6 L (12.0-16.0) g/dl Hct 30.9 L (37.0-47.0) % Plt Count 193 (130-400) K/uL BMP 03/22/23 06:20 Sodium 132 L Potassium 3.2 L Chloride 95 L Carbon Dioxide 31 BUN 12 Creatinine 0.57 L Glucose 89 Calcium 8.1 L (1) UTI (urinary tract infection) Urinary tract infection type: site unspecified
--- NOTE | 2023-03-22 20:51 | Electrocardiogram Report ---
Test Reason : Blood Pressure : / mmHG Vent. Rate : 063 BPM Atrial Rate : 063 BPM P-R Int : 168 ms QRS Dur : 080 ms QT Int : 464 ms P-R-T Axes : 047 005 162 degrees QTc Int : 474 ms Sinus rhythm with Premature atrial complexes Left ventricular hypertrophy with repolarization abnormality ( R in aVL , Romhilt-[place] ) Abnormal ECG When compared with ECG of 17-FEB-2011 09:41, Premature atrial complexes are now Present T wave inversion now evident in Anterolateral leads QT has lengthened Confirmed by Shaka Webster ([id number]) on 03/22/2023 8:50:53 PM Referred By: REFERRED SELF Confirmed By:Shaka Webster
--- NOTE | 2023-03-22 21:13 | Electrocardiogram Report ---
Test Reason : Blood Pressure : / mmHG Vent. Rate : 062 BPM Atrial Rate : 062 BPM P-R Int : 180 ms QRS Dur : 074 ms QT Int : 430 ms P-R-T Axes : 040 -02 126 degrees QTc Int : 436 ms Sinus rhythm with Premature atrial complexes Moderate voltage criteria for LVH, may be normal variant Possible Inferior infarct , age undetermined T wave abnormality, consider lateral ischemia Abnormal ECG When compared with ECG of 21-MAR-2023 13:29, (unconfirmed) Borderline criteria for Inferior infarct are now Present Nonspecific T wave abnormality has replaced inverted T waves in Anterior leads Confirmed by Shaka Webster ([id number]) on 03/22/2023 9:12:57 PM Referred By: REFERRED SELF Confirmed By:Shaka Webster
[2023-03-23 06:48] LABS: Hematocrit (blood only) 29.8 % (37.0-47.0); Hemoglobin 10.1 g/dl (12.0-16.0); Mean Corpuscular Hemoglobin 34.6 pg (25.0-34.0); Mean Corpuscular Hgb Conc 33.9 g/dL (32.0-36.0); Mean Corpuscular Volume 102.1 fL (80.0-100.0); Mean Platelet Volume 8.7 fL (9.4-12.4); Platelet Count 193 K/uL (130-400); RDW Coefficient of Variation 13.4 % (11.5-14.5); RDW Standard Deviation 50.5 fL (36.4-46.3); Red Blood Count 2.92 M/uL (4.20-5.40); White Blood Count 5.95 K/ul (4.8-10.8)
[2023-03-23 07:13] LABS: INR 2.9 (0.9-1.1); Prothrombin Time 29.9 Seconds (9.0-12.0)
[2023-03-23 07:20] LABS: Calcium 8.5 mg/dl (8.6-10.3); Creatinine Clr Calc Pharmacy 51.3 ml/min; Est GFR (African American) 94.3 ml/min; Est GFR (Non-African American) 81.4 ml/min; Potassium 3.7 mmol/L (3.5-5.1)
[2023-03-23] MEDS: CITALOPRAM 20 MG TAB PO SCH (08:59)
[2023-03-23] MEDS: ADVANCED PROBIOTIC 1250 MG CAPSULE PO SCH (08:59)
[2023-03-23] MEDS: ACETAMINOPHEN 325 MG TAB PO PRN (09:00)
[2023-03-23] MEDS ORDERED: LOSARTAN POTASSIUM 25 MG TAB PO SCH (10:45)
[2023-03-23] MEDS: LOSARTAN POTASSIUM 50 MG TAB PO SCH (11:46)
[2023-03-23] MEDS: cefTRIAXone SODIUM 1,000 MG in DEXTROSE 5 % MINI-B 50 ML IV SCH (15:24)
--- NOTE | 2023-03-23 17:47 | Hospitalist Progress Note ---
Date of Service March 23, 2023 Assessment & Plan (1) UTI (urinary tract infection): Plan: Patient presenting from home with reports of generalized weakness. Diagnosed with presumed UTI and has been on Keflex. Urine sample was not obtained. Patient reports mild improvement in urinary symptoms since starting Keflex however still present on presentation. UTI Urine culture growing gram-negative bacilli Cultures likely unreliable as already on Keflex prior to admission Continue empiric Rocephin Adjust medications as needed (2) Generalized weakness: Plan: Generalized weakness Ambulatory dysfunction Likely secondary to infection Normal TSH PT OT Fall precautions Pressure ulcer of left buttock Wound care nurse consulted Continue local wound care (3) Ambulatory dysfunction: Plan: Management as above (4) Elevated blood pressure reading: Plan: Hypertension urgency Not on any medications at home Started on losartan 50mg daily Hydralazine as needed Adjust medications as needed (5) Hyponatremia: Plan: Hyponatremia Likely hypovolemic hyponatremia due to poor oral intake, diarrhea Received gentle IV fluids Sodium improved to 134 today Monitor sodium Diarrhea Likely due to antibiotics Stool studies negative Added probiotics IV fluids as needed (6) Hypokalemia: Plan: Replete and monitor electrolytes (7) History of pulmonary embolism: Plan: S/p Yaa filter and anticoagulated on Coumadin Supratherapeutic INR on presentation Currently no bleeding issues Monitor INR:2.9 today Will consider to resume Coumadin tomorrow DVT Px: Therapeutic INR CODE STATUS DNR/DNI Disposition PT OT prior to discharge Admission and Anticipated Discharge Date Admission Date: March 21, 2023 Subjective Patient is seen and examined at bedside Sitting in chair during my encounter Offers no complaints Denies any chest pain, dyspnea, dizziness, nausea, vomiting, abdominal pain, dysuria Urine culture pending Review of Systems Review of Systems: All systems reviewed & are unremarkable except as noted in Subjective Physical Exam Physical Exam: Physical Exam: Vitals signs as noted above General Appearance: Thin, frail, elderly, no apparent distress Head: normocephalic, Atraumatic Eyes: normal inspection, EOMI Neck: supple, Trachea midline Respiratory/Chest: Normal breath sounds, CTA, No accessory muscle use Cardiovascular: S1, S2, +murmur Abdomen/GI:Soft, Non tender, Bowel sounds present Extremities/Musculoskeletal:normal inspection, + edema Neurologic/Psych:AAOX3, grossly no focal neurological deficits Skin: normal color, warm Results & Data Results & Data Vital Signs (Past 12 Hours) Vital Signs Temp Pulse Resp BP Pulse Ox O2 Del Method 03/23/23 17:09 36.9 C 72 18 167/74 H 96 Room Air 03/23/23 09:00 Room Air 03/23/23 07:14 36.6 C 65 18 172/70 H 98 Room Air Laboratory Results Short CBC 03/23/23 Range/Units 05:55 WBC 5.95 (4.8-10.8) K/ul Hgb 10.1 L (12.0-16.0) g/dl Hct 29.8 L (37.0-47.0) % Plt Count 193 (130-400) K/uL BMP 03/23/23 05:55 Sodium 134 L Potassium 3.7 Chloride 96 L Carbon Dioxide 34 H BUN 12 Creatinine 0.60 Glucose 104 H Calcium 8.5 L (1) UTI (urinary tract infection) Urinary tract infection type: site unspecified
[2023-03-24 07:18] LABS: Hematocrit (blood only) 28.6 % (37.0-47.0); Hemoglobin 9.8 g/dl (12.0-16.0); Mean Corpuscular Hemoglobin 34.8 pg (25.0-34.0); Mean Corpuscular Hgb Conc 34.3 g/dL (32.0-36.0); Mean Corpuscular Volume 101.4 fL (80.0-100.0); Mean Platelet Volume 8.5 fL (9.4-12.4); Platelet Count 181 K/uL (130-400); RDW Coefficient of Variation 13.4 % (11.5-14.5); RDW Standard Deviation 50.4 fL (36.4-46.3); Red Blood Count 2.82 M/uL (4.20-5.40)
[2023-03-24 07:30] LABS: BUN Creatinine Ratio 22.6 (10-20); Calcium 8.4 mg/dl (8.6-10.3); Creatinine Clr Calc Pharmacy 49.6 ml/min; Est GFR (African American) 93.3 ml/min; Est GFR (Non-African American) 80.5 ml/min; Potassium 3.5 mmol/L (3.5-5.1)
[2023-03-24 07:49] LABS: INR 1.6 (0.9-1.1); Prothrombin Time 17.3 Seconds (9.0-12.0)
[2023-03-24] MEDS: LOSARTAN POTASSIUM 50 MG TAB PO SCH (08:01)
[2023-03-24] MEDS: CITALOPRAM 20 MG TAB PO SCH (08:01)
[2023-03-24] MEDS: ADVANCED PROBIOTIC 1250 MG CAPSULE PO SCH (08:01)
[2023-03-24] MEDS: ACETAMINOPHEN 325 MG TAB PO PRN (08:04)
--- NOTE | 2023-03-24 13:53 | Hospitalist Progress Note ---
Date of Service March 24, 2023 Assessment & Plan (1) UTI (urinary tract infection): Plan: Patient presenting from home with reports of generalized weakness. Diagnosed with presumed UTI and has been on Keflex. Urine sample was not obtained. Patient reports mild improvement in urinary symptoms since starting Keflex however still present on presentation. UTI Urine culture growing gram-negative bacilli (7000 colonies Cultures likely unreliable as already on Keflex prior to admission Continue empiric Rocephin Day #3 Plan to be discharged to rehab facility today (2) Generalized weakness: Plan: Generalized weakness Ambulatory dysfunction Likely secondary to infection Normal TSH PT OT Fall precautions Pressure ulcer of left buttock Stage II Wound care nurse consulted Continue local wound care (3) Ambulatory dysfunction: Plan: Management as above (4) Elevated blood pressure reading: Plan: Hypertension urgency Not on any medications at home Started on losartan 50mg daily Hydralazine as needed Adjust medications as needed (5) Hyponatremia: Plan: Hyponatremia Likely hypovolemic hyponatremia due to poor oral intake, diarrhea Received gentle IV fluids Sodium improved to 133 today Monitor sodium Diarrhea Likely due to antibiotics Stool studies negative Added probiotics IV fluids as needed Resolved (6) Hypokalemia: Plan: Replete and monitor electrolytes (7) History of pulmonary embolism: Plan: S/p Yaa filter and anticoagulated on Coumadin Supratherapeutic INR on presentation Currently no bleeding issues Monitor INR:1.6 today Resume Coumadin 2.5 mg today DVT Px: Coumadin CODE STATUS DNR/DNI Disposition Rehab Admission and Anticipated Discharge Date Admission Date: March 21, 2023 Subjective Patient is seen and examined at bedside States feeling well No complaints Denies any chest pain, dyspnea, dizziness, nausea, vomiting, abdominal pain, dysuria Plan to be discharged to rehab facility today Review of Systems Review of Systems: All systems reviewed & are unremarkable except as noted in Subjective Physical Exam Physical Exam: Physical Exam: Vitals signs as noted above General Appearance: Thin, frail, elderly, no apparent distress Head: normocephalic, Atraumatic Eyes: normal inspection, EOMI Neck: supple, Trachea midline Respiratory/Chest: Normal breath sounds, CTA, No accessory muscle use Cardiovascular: S1, S2, +murmur Abdomen/GI:Soft, Non tender, Bowel sounds present Extremities/Musculoskeletal:normal inspection, + edema Neurologic/Psych:AAOX3, grossly no focal neurological deficits Skin: normal color, warm Results & Data Results & Data Vital Signs (Past 12 Hours) Vital Signs Temp Pulse Resp BP Pulse Ox O2 Del Method 03/24/23 05:44 36.7 C 62 16 167/69 H 93 Room Air Laboratory Results Short CBC 03/24/23 Range/Units 06:41 WBC 4.50 L (4.8-10.8) K/ul Hgb 9.8 L (12.0-16.0) g/dl Hct 28.6 L (37.0-47.0) % Plt Count 181 (130-400) K/uL BMP 03/24/23 06:41 Sodium 133 L Potassium 3.5 Chloride 96 L Carbon Dioxide 34 H BUN 14 Creatinine 0.62 Glucose 105 H Calcium 8.4 L (1) UTI (urinary tract infection) Urinary tract infection type: site unspecified
--- NOTE | 2023-03-24 13:59 | Discharge Summary ---
Date of Service March 24, 2023 Admission HPI Per Admitting Provider 88-year-old female with PMH dyslipidemia, history of pulmonary embolism s/p [place] filter anticoagulated on Coumadin, depression, and other problems listed below who presents to the ED for evaluation of generalized weakness. History is obtained from the patient and review of outpatient PCP records. Over the past 1 week, patient has been very weak. She has had difficulty ambulating. Has not had any falls. She reports bladder pressure and urinary frequency. PCP prescribed a course of Keflex. Patient did not have a UA or culture obtained. She reports some mild improvement in urinary symptoms since starting Keflex. No fevers or chills. Reports a very poor appetite however denies abdominal pain, nausea, vomiting, diarrhea. No chest pain or shortness of breath. Denies lightheadedness, dizziness, diaphoresis, syncopal events. In the ED, labs show Na+ 129, K+ 3.1. UA does not appear infected. Patient was given IV ceftriaxone and IVF. Admission Exam Per Admitting Provider onstitutional: WD/WN, vitals as above no acute distress Eyes: PERRL, conjunctivae normal, anicteric sclerae ENMT: external ear and nose normal, oropharynx normal Respiratory: normal respiratory effort, lungs clear to auscultation Cardiovascular: Rate/Rhythm: regular rate and regular rhythm Vessels: normal peripheral pulses Extremities: + edema (+1 edema BLE) Gastrointestinal (Abdomen): normal bowel sounds, soft, nontender, no hepatosplenomegaly Musculoskeletal: no cyanosis or clubbing, extremities motor strength 5/5 Skin: no rashes, warm and dry Neurologic: PERRL, EOMI, accommodation nl, no face palsy, no dysarthria Psychiatric: A+Ox3, euthymic affect Principal Diagnosis Urinary tract infection Generalized weakness Ambulatory dysfunction Supratherapeutic INR Left buttock pressure ulcer Hypertension urgency Hyponatremia Discharge Data Allergies Allergy/AdvReac Type Severity Reaction Status Date / Time No Known Allergies Allergy Unverified 01/12/12 07:54 Consultations 03/21/23 14:52 ED Decision to Admit Stat Ordered Studies Laboratory Results WBC 4.50 K/ul (4.8-10.8) L 03/24/23 06:41 RBC 2.82 M/uL (4.20-5.40) L 03/24/23 06:41 Hgb 9.8 g/dl (12.0-16.0) L 03/24/23 06:41 Hct 28.6 % (37.0-47.0) L 03/24/23 06:41 MCV 101.4 fL (80.0-100.0) H 03/24/23 06:41 MCH 34.8 pg (25.0-34.0) H 03/24/23 06:41 MCHC 34.3 g/dL (32.0-36.0) 03/24/23 06:41 RDW Std Deviation 50.4 fL (36.4-46.3) H 03/24/23 06:41 RDW Coeff of João 13.4 % (11.5-14.5) 03/24/23 06:41 Plt Count 181 K/uL (130-400) 03/24/23 06:41 MPV 8.5 fL (9.4-12.4) L 03/24/23 06:41 Immature Gran % (Auto) 0.3 % 03/21/23 13:21 Neut % (Auto) 77.2 % 03/21/23 13:21 Lymph % (Auto) 12.3 % 03/21/23 13:21 [place] % (Auto) 9.4 % 03/21/23 13:21 Eos % (Auto) 0.7 % 03/21/23 13:21 Baso % (Auto) 0.1 % 03/21/23 13:21 Neut # (Auto) 5.32 K/uL (1.40-6.50) 03/21/23 13:21 Lymph # (Auto) 0.85 K/uL (1.20-3.40) L 03/21/23 13:21 [place] # (Auto) 0.65 K/uL (0.11-0.59) H 03/21/23 13:21 Eos # (Auto) 0.05 K/uL (0.00-0.50) 03/21/23 13:21 Baso # (Auto) 0.01 K/uL (0.00-0.20) 03/21/23 13:21 Immature Gran # (Auto) 0.02 K/uL (0.01-0.20) 03/21/23 13:21 PT 17.3 Seconds (9.0-12.0) H 03/24/23 06:41 INR 1.6 (0.9-1.1) H 03/24/23 06:41 APTT 52 Seconds (21-31) H 03/21/23 14:25 PTT Ratio 1.8 03/21/23 14:25 Sodium 133 mmol/L (136-145) L 03/24/23 06:41 Potassium 3.5 mmol/L (3.5-5.1) 03/24/23 06:41 Chloride 96 mmol/L (98-107) L 03/24/23 06:41 Carbon Dioxide 34 mmol/L (21-32) H 03/24/23 06:41 Anion Gap 3 (3-11) 03/24/23 06:41 BUN 14 mg/dl (6-23) 03/24/23 06:41 Creatinine 0.62 mg/dl (0.6-1.2) 03/24/23 06:41 Est Cr Clr Drug Dosing 49.6 ml/min 03/24/23 06:41 Est GFR ( Amer) 93.3 ml/min 03/24/23 06:41 Est GFR (Non-Af Amer) 80.5 ml/min 03/24/23 06:41 BUN/Creatinine Ratio 22.6 (10-20) H 03/24/23 06:41 Glucose 105 mg/dl (70-99(Fasting)) H 03/24/23 06:41 Osmolality 268 mOsm/kg (280-300) L 03/21/23 13:21 Calcium 8.4 mg/dl (8.6-10.3) L 03/24/23 06:41 Magnesium 2.1 mg/dl (1.7-2.4) 03/22/23 06:20 Total Bilirubin 1.1 mg/dl (0.2-1.0) H 03/21/23 13:21 AST 24 U/L (13-39) 03/21/23 13:21 ALT 12 U/L (7-52) 03/21/23 13:21 Alkaline Phosphatase 68 U/L (34-104) 03/21/23 13:21 Total Protein 6.4 gm/dl (6.0-8.3) 03/21/23 13:21 Albumin 3.5 gm/dl (3.4-5.0) 03/21/23 13:21 Globulin 2.9 gm/dl (2.5-4.0) 03/21/23 13:21 Albumin/Globulin Ratio 1.2 (0.9-2) 03/21/23 13:21 TSH 1.196 uIu/ml (0.300-4.500) 03/22/23 06:20 Urine Color Dark Yellow 03/21/23 14:24 Urine Appearance Clear (Clear) 03/21/23 14:24 Urine pH 5.5 (4.5-7.5) 03/21/23 14:24 Ur Specific [place] 1.023 (1.000-1.030) 03/21/23 14:24 Urine Protein Negative (Negative) 03/21/23 14:24 Urine Glucose (UA) Negative (Negative) 03/21/23 14:24 Urine Ketones Trace (Negative) H 03/21/23 14:24 Urine Blood Negative (Negative) 03/21/23 14:24 Urine Nitrite Negative (Negative) 03/21/23 14:24 Urine Bilirubin Negative (Negative) 03/21/23 14:24 Urine Urobilinogen Negative (Negative) 03/21/23 14:24 Ur Leukocyte Esterase Negative (Negative) 03/21/23 14:24 Urine Osmolality 361 mOsm/kg (500-800) L 03/21/23 20:53 Stl C. cayetanensis PCR Not Detected (NotDetected) 03/22/23 09:15 Stool Rotavirus A PCR Not Detected (NotDetected) 03/22/23 09:15 Stl Adenov F 40/41 PCR Not Detected (NotDetected) 03/22/23 09:15 Stool Astrovirus (PCR) Not Detected (NotDetected) 03/22/23 09:15 Stool Campylobacter PCR Not Detected (NotDetected) 03/22/23 09:15 Stl C. diff Tox B Gene Negative Cdiff Gene (Neg) 03/22/23 09:15 Stool Cryptosporidium PCR Not Detected (NotDetected) 03/22/23 09:15 Stl E.coli Shiga Tox PCR Not Detected (NotDetected) 03/22/23 09:15 Stl Enterotoxigenic E PCR Not Detected (NotDetected) 03/22/23 09:15 Stool EPEC (PCR) Not Detected (NotDetected) 03/22/23 09:15 Stool EAEC (PCR) Not Detected (NotDetected) 03/22/23 09:15 Stl E. histolytica PCR Not Detected (NotDetected) 03/22/23 09:15 Stool Giardia Lamblia PCR Not Detected (NotDetected) 03/22/23 09:15 Stool Salmonella PCR Not Detected (NotDetected) 03/22/23 09:15 Stool Sapovirus (PCR) Not Detected (NotDetected) 03/22/23 09:15 Stl P. shigelloides PCR Not Detected (NotDetected) 03/22/23 09:15 Stl Shigella/EIEC PCR Not Detected (NotDetected) 03/22/23 09:15 St Y.enterocolitica PCR Not Detected (NotDetected) 03/22/23 09:15 Stool Vibrio (PCR) Not Detected (NotDetected) 03/22/23 09:15 Stl Vibrio cholerae PCR Not Detected (NotDetected) 03/22/23 09:15 Stl Norovirus GI/GII PCR Not Detected (NotDetected) 03/22/23 09:15 Impressions Chest X-Ray 03/21/23 13:19 SINGLE VIEW CHEST CLINICAL HISTORY: Dyspnea FINDINGS: An AP, portable, upright chest radiograph is compared to study dated 01/10/2011. The heart is enlarged noting atherosclerotic calcification of the thoracic aorta. The pulmonary vasculature is not congested. Chronic interstitial thickening is similar to previous. There is mild bibasilar scarring/atelectasis. No airspace consolidation or large pleural effusion is identified. No pneumothorax is seen. The skeletal structures are osteopenic. The bony thorax is grossly intact. The tip of an IVC filter is noted in the upper abdomen. IMPRESSION: Cardiomegaly with no active disease in the chest. ACT 112: Negative or not required by law. Electronically signed by: Tray Hendricks M.D. 03/21/2023 2:32 PM Hospital Course (1) UTI (urinary tract infection): Patient presenting from home with reports of generalized weakness. Diagnosed with presumed UTI and has been on Keflex. Urine sample was not obtained. Patient reports mild improvement in urinary symptoms since starting Keflex however still present on presentation. UTI Urine culture growing gram-negative bacilli (7000 colonies Cultures likely unreliable as already on Keflex prior to admission Continue empiric Rocephin Day #3 Plan to be discharged to rehab facility today (2) Generalized weakness: Generalized weakness Ambulatory dysfunction Likely secondary to infection Normal TSH PT OT Fall precautions Pressure ulcer of left buttock Stage II Wound care nurse consulted Continue local wound care (3) Ambulatory dysfunction: Management as above (4) Elevated blood pressure reading: Hypertension urgency Not on any medications at home Started on losartan 50mg daily Hydralazine as needed Adjust medications as needed (5) Hyponatremia: Hyponatremia Likely hypovolemic hyponatremia due to poor oral intake, diarrhea Received gentle IV fluids Sodium improved to 133 today Monitor sodium Diarrhea Likely due to antibiotics Stool studies negative Added probiotics IV fluids as needed Resolved (6) Hypokalemia: Replete and monitor electrolytes (7) History of pulmonary embolism: S/p Yaa filter and anticoagulated on Coumadin Supratherapeutic INR on presentation Currently no bleeding issues Monitor INR:1.6 today Resume Coumadin 2.5 mg today DVT Px: Coumadin CODE STATUS DNR/DNI Disposition Rehab Total Time Total Time Spent Total Time Spent (In Minutes): 49 minutes Discharge Plan Discharge Items Patient Disposition: Transfer Inpatient Rehab Fac Reason For Visit: UTI, WEAKNESS Discharge Diagnosis: Urinary tract infection Generalized weakness Ambulatory dysfunction Supratherapeutic INR Left buttock pressure ulcer Hypertension urgency Hyponatremia Activity: Resume your previous activity Exercise/Sports: Gradually increase as tolerated Non-emergency contact: Primary Care Provider Call non-emergency contact if: you have any medication questions, your symptoms worsen, your pain is concerning for you and you have a fever Follow-up/Referrals: Edwin Otto MD [Primary Care Provider] - Diet: Regular Addtl Attending Provider Instructions: Follow-up with your Primary care physician in 1 week upon discharge from rehab facility -- Complete the antibiotic course as prescribed for 2 more days. --Monitor your PT/INR while at rehab facility (in 2 days) and adjust your Coumadin dose as needed to target PT/INR 2.0-3.0 --Monitor your blood pressure regularly as advised. Discuss with your physician regarding medication adjustment as needed Seek immediate medical attention if your symptoms reoccur or worsen Please take all medications as instructed on discharge list below. Please call if you have any questions or problems. You can reach a [facility] hospitalist on duty at [facility] 24 hours a day by calling [phone] Pending Studies at Discharge: No Stand-Alone Forms: My [facility] Skilled Items Patient informed of condition?: Yes DNR: Yes Discharge Level of Care: Acute rehab Communicable Disease: No Discharge Prognosis: Stable Lines: None Urinary Catheter: No Medications and DC Order Prescriptions: New losartan 50 mg Tablet 50 mg PO QAM Qty: 30 0RF Advanced Probiotic 625 mg (10 billion cell) Capsule 2 cap PO DAILY Qty: 20 0RF Continued citalopram 20 mg tablet 20 mg PO DAILY warfarin [Jantoven] 5 mg tablet 5 mg PO FR warfarin [Jantoven] 5 mg tablet 2.5 mg PO SUMOTUWETHSA cephalexin 500 mg capsule 500 mg PO BID Qty: 4 0RF Rx Instructions: Start taking from 03/25/23 Discharge Orders: Discharge Order (Routine); Ordered 03/24/23 Ordered By: Matt Tovar Admission Data Admit Date/Time: 03/21/23 15:06 Attending Provider: Matt Tovar Admit Provider: Matt Tovar Primary Care Provider: Edwin Otto Other Providers: Matt Tovar; [facility]
[2023-03-24] MEDS ORDERED: cefTRIAXone SODIUM 1,000 MG in DEXTROSE 5 % MINI-B 50 ML IV SCH (14:00)
[2023-03-24] MEDS ORDERED: WARFARIN SOD 2.5 MG TAB PO SCH (16:00)
== END 2023-03-24 17:34 | DRG 690 ==
LOC: ED 13:03 → 3W 15:06